=== PATIENT | female | born 1990 | race Two or more races ===

== ENCOUNTER 2022-12-28 13:49 | Emergency (ER) | payer OTHER ==
[2022-12-28 14:12] VITALS: BP 128/82; PULSE 91; RESP 20; TEMP 97.7; BMI 26.4
[2022-12-28] MEDS ORDERED: AMOX TR/POT CLAV 875MG/125MG TABLETS (FP) PO ONE (17:07)
[2022-12-28] MEDS ORDERED: AMOX TR/POT CLAV 875MG/125MG TABLETS (FP) ONE (17:37)
[2022-12-28 20:56] LABS: BASO % 0.3 % (0-2.0); EOS % 1.6 % (0-4.5); HEMATOCRIT 36.2 % (32.4-45.2); HEMOGLOBIN 11.8 GM/dL (10.7-15.3); LYMPH % 30.8 % (8-40); MCH 28.5 pg (25.7-33.7); MCHC 32.6 g/dl (32.0-36.0); MEAN CELL VOLUME 87.2 fl (80-96); MEAN PLT VOLUME 7.6 fl (7.5-11.1); NEUT % 60.3 % (42.8-82.8); PLATELET COUNT 672 10^3/uL (134-434); RBC 4.15 M/mm3 (3.60-5.2); RDW 13.3 % (11.6-15.6); WHITE BLOOD COUNT 12.1 K/mm3 (4.0-10.0)
[2022-12-28 21:25] LABS: CALCIUM 9.5 mg/dL (8.5-10.1)
[2022-12-28 21:26] LABS: ALBUMIN 2.3 g/dl (3.4-5.0); BLOOD UREA NITROGEN 22.9 mg/dL (7-18)
[2022-12-28 21:29] LABS: CREATININE 0.8 mg/dL (0.55-1.3)
[2022-12-28 21:31] LABS: BILIRUBIN,TOTAL 0.2 mg/dL (0.2-1)
[2022-12-28] MEDS ORDERED: AMOX TR/POT CLAV 875MG/125MG TABLETS (FP) PO SCH (22:00)
== END 2022-12-28 22:21 | disposition home or self-care (01) ==
LOC: JER 13:49
DX: L03.032 Cellulitis of left toe (principal)
CPT/HCPCS: 36415; 73630-TC-LT; 80053; 85025; 99284-25

== ENCOUNTER 2023-01-18 05:27 | Day surgery (SDC) | payer OTHER ==
[2023-01-12 14:59] VITALS: BMI 26.4
[2023-01-18] MEDS ORDERED: LIDOCAINE HCL 1%, 10 MG/ML (20ML VIAL) NR ONE ×3 (14:51→16:12)
[2023-01-18] MEDS ORDERED: ceFAZolin SODIUM 1 GM VIAL IVPB ONE ×2 (14:51→15:59)
[2023-01-18] MEDS ORDERED: HEPARIN NA (PORCINE) 5,000 UNITS/ML 1ML VIAL SQ ONE (14:52)
[2023-01-18] MEDS ORDERED: HEPARIN NA (PORCINE) 5,000 UNITS/ML 1ML VIAL ONE ×2 (14:54→16:40)
[2023-01-18] MEDS ORDERED: LIDOCAINE HCL 1%, 10 MG/ML (10ML VIAL) MDV ONE (14:54)
[2023-01-18] MEDS ORDERED: oxyCODONE HCL 5 MG TABLET PO PRN (15:06)
[2023-01-18] MEDS ORDERED: ONDANSETRON 4 MG/2 ML VIAL IVPUSH PRN (15:06)
[2023-01-18] MEDS ORDERED: PROMETHAZINE HCL 25 MG/1 ML VIAL IVPB PRN (15:06)
[2023-01-18] MEDS ORDERED: LACTATED RINGERS SOLUTION 1,000 ML IV SCH (15:15)
[2023-01-18] MEDS ORDERED: MIDAZOLAM HCL 2 MG/2 ML SINGLE DOSE VIAL ONE (15:52)
[2023-01-18] MEDS ORDERED: PROPOFOL 20 ML ONE ×2 (15:52→16:35)
[2023-01-18] MEDS ORDERED: SODIUM CHLORIDE 0.9% P/F 10 ML VIAL IJ ONE (15:53)
[2023-01-18] MEDS ORDERED: ceFAZolin SODIUM 1 GM VIAL ONE (15:53)
[2023-01-18] MEDS ORDERED: LIDOCAINE HCL/PF 2% SDV 5ML VIAL ONE (15:53)
[2023-01-18] MEDS ORDERED: ETOMIDATE 20 MG/10 ML VIAL IVPUSH ONE (16:37)
[2023-01-18] MEDS ORDERED: DEXTROSE 50%-WATER 25 GM/50 ML DISP.SYRIN ONE (17:25)
[2023-01-18] MEDS ORDERED: DEXTROSE 50%-WATER 25 GM/50 ML DISP.SYRIN IVPUSH ONE (17:28)
[2023-01-18] MEDS ORDERED: D5-1/2NS+40 MEQ KCL - 40 MEQ/1,000 ML INFUS.BAG IV SCH (17:30)
[2023-01-18 17:52] VITALS: RESP 16
[2023-01-18 19:18] VITALS: TEMP 97.2
[2023-01-18] MEDS ORDERED: ACETAMINOPHEN 325 MG TABLET (FP) ONE (19:59)
[2023-01-18] MEDS ORDERED: ACETAMINOPHEN 325 MG TABLET (FP) PO ONE (20:00)
[2023-01-18] MEDS ORDERED: ACETAMINOPHEN 500 MG TABLET (FP) PO PRN (20:01)
[2023-01-18 20:52] VITALS: BP 130/85; PULSE 70
== END 2023-01-18 21:00 | disposition home or self-care (01) ==
LOC: JASU-SURG 05:27
PROVIDERS: ATTEND Surgery Vascular Surgery
PROC: 047U3Z1 Dilation of Left Peroneal Artery using Drug-Coated Balloon, Percutaneous Approach (ICD-10-PCS; 2023-01-18)
PROC: 047N3Z1 Dilation of Left Popliteal Artery using Drug-Coated Balloon, Percutaneous Approach (ICD-10-PCS; 2023-01-18)
PROC: 047L3Z1 Dilation of Left Femoral Artery using Drug-Coated Balloon, Percutaneous Approach (ICD-10-PCS; principal; 2023-01-18 16:30)
DX: I70.202 Unspecified atherosclerosis of native arteries of extremities, left leg (principal); I70.92 Chronic total occlusion of artery of the extremities; E11.621 Type 2 diabetes mellitus with foot ulcer; E11.52 Type 2 diabetes mellitus with diabetic peripheral angiopathy with gangrene; E11.65 Type 2 diabetes mellitus with hyperglycemia
CPT/HCPCS: 37225; 37228; C1885; C2623; 76000-TC-FY; 81025; 82962; 94760; C1760; C1769; J1644

== ENCOUNTER 2023-02-21 09:30 | Emergency (ER) | payer OTHER ==
[2023-02-21] MEDS ORDERED: DEXTROSE 50%-WATER 25 GM/50 ML DISP.SYRIN ONE (09:36)
[2023-02-21] MEDS ORDERED: DEXTROSE 50%-WATER - 25 GM/50 ML VIAL IVPUSH ONE (09:48)
[2023-02-21 09:56] VITALS: BMI 25.7
[2023-02-21 10:55] VITALS: BP 149/97; PULSE 107; RESP 17; TEMP 98.1
[2023-02-21 11:57] LABS: POTASSIUM 4.3 mmol/L (3.5-5.1)
[2023-02-21 11:58] LABS: ALBUMIN 2.4 g/dl (3.4-5.0); BLOOD UREA NITROGEN 24.8 mg/dL (7-18); CALCIUM 8.9 mg/dL (8.5-10.1)
[2023-02-21 12:03] LABS: BILIRUBIN,TOTAL 0.2 mg/dL (0.2-1); TOT PROT 6.1 g/dl (6.4-8.2)
== END 2023-02-21 11:20 | disposition home or self-care (01) ==
LOC: JER 09:30
PROC: 3E033GC Introduction of Other Therapeutic Substance into Peripheral Vein, Percutaneous Approach (ICD-10-PCS; principal; 2023-02-21)
DX: E11.621 Type 2 diabetes mellitus with foot ulcer (principal); L97.529 Non-pressure chronic ulcer of other part of left foot with unspecified severity; E11.51 Type 2 diabetes mellitus with diabetic peripheral angiopathy without gangrene; E11.649 Type 2 diabetes mellitus with hypoglycemia without coma
CPT/HCPCS: 36415; 80053; 82962; 93005; 93010; 99284-25

== ENCOUNTER 2023-04-19 14:53 | Inpatient (IN) | payer OTHER ==
[2023-04-19] MEDS ORDERED: ACETAMINOPHEN 1000 MG/100 ML BAG IVPB ONE (15:59)
[2023-04-19] MEDS ORDERED: ACETAMINOPHEN INJECTION 100 ML IVPB ONE (16:28)
[2023-04-19 16:31] LABS: BASO % 0.1 % (0-2.0); EOS % 0.6 % (0-4.5); HEMATOCRIT 41.9 % (32.4-45.2); HEMOGLOBIN 13.9 GM/dL (10.7-15.3); LYMPH % 12.5 % (8-40); MCHC 33.1 g/dl (32.0-36.0); MEAN CELL VOLUME 87.5 fl (80-96); MEAN PLT VOLUME 8.2 fl (7.5-11.1); MONO % 7.7 % (3.8-10.2); NEUT % 79.1 % (42.8-82.8); PLATELET COUNT 446 10^3/uL (134-434); RBC 4.78 M/mm3 (3.60-5.2); RDW 16.4 % (11.6-15.6); WHITE BLOOD COUNT 22.2 K/mm3 (4.0-10.0)
[2023-04-19 16:47] LABS: INR 1.14 (0.83-1.09); PROTHROMBIN TIME (PATIENT) 13.2 SEC (9.7-13.0)
[2023-04-19 16:49] LABS: POTASSIUM 4.9 mmol/L (3.5-5.1)
[2023-04-19 16:50] LABS: ACTIVATED PTT 37.6 SECONDS (25.2-36.5)
[2023-04-19 16:52] LABS: ALBUMIN 2.4 g/dl (3.4-5.0); BLOOD UREA NITROGEN 34.3 mg/dL (7-18); CALCIUM 9.2 mg/dL (8.5-10.1)
[2023-04-19 16:55] LABS: CREATININE 1.4 mg/dL (0.55-1.3)
[2023-04-19 16:57] LABS: BILIRUBIN,TOTAL 0.4 mg/dL (0.2-1); TOT PROT 6.5 g/dl (6.4-8.2)
[2023-04-19 17:21] LABS: ERYTHROCYTE SEDIMENTATION RATE 82 mm/hr (0-20)
[2023-04-19 17:29] LABS: ANISOCYTOSIS 2+; MACROCYTOSIS 0
[2023-04-19] MEDS ORDERED: VANCOMYCIN HCL 1,500 MG in DEXTROSE 5%-WATER - 500 ML IVPB ONE (18:15)
[2023-04-19] MEDS ORDERED: PIPERACILLIN/TAZOB 3.375 GM 3.375 GM in DEXTROSE 5%-WATER - 50 ML IVPB ONE (18:16)
[2023-04-19] MEDS ORDERED: SODIUM CHLORIDE 1,000 ML IV STA (18:18)
[2023-04-19] MEDS ORDERED: PIPERACILLIN/TAZOB 3.375 GM 3.375 GM/50 ML BAG IVPB ONE (18:37)
[2023-04-19] MEDS ORDERED: VANCOMYCIN/WATER FOR INJ (PEG) 1,000 MG/200 ML BAG IVPB ONE (18:56)
[2023-04-19] MEDS ORDERED: VANCOMYCIN/WATER 1250 MG 1,250 MG/250 ML BAG IVPB ONE (19:53)
[2023-04-19] MEDS ORDERED: VANCOMYCIN/WATER 1250 MG 1,250 MG/250 ML BAG IVPB SCH (21:30)
[2023-04-19 21:55] LABS: EPI CELLS 35 /uL (0-25.1); HYALINE CASTS 1 /uL (0-3.1); PH,URINE 5.5 (5.0-8.0); URINE APPEARANCE CLEAR; URINE BACTERIA 240 /uL (0-1359); URINE BILIRUBIN NEGATIVE (NEGATIVE); URINE COLOR YELLOW; URINE GLUCOSE (UA) 3+ (NEGATIVE); URINE KETONE NEGATIVE (NEGATIVE); URINE LEUK ESTERASE NEGATIVE (NEGATIVE); URINE NITRITE NEGATIVE (NEGATIVE); URINE PROTEIN 3+ (NEGATIVE); URINE UROBILINOGEN 0.2 mg/dL (0.2-1.0); URINE WBC 20 /uL (0-25.8)
[2023-04-19 22:00] LABS: URINE RBC 39.7 /uL (0-23.9)
[2023-04-19] MEDS ORDERED: ACETAMINOPHEN 1000 MG/100 ML BAG IVPB PRN (23:44)
[2023-04-19] MEDS ORDERED: ACETAMINOPHEN 325 MG TABLET (FP) PO PRN (23:47)
[2023-04-19] MEDS ORDERED: INSULIN (NOVOLOG) ASPART 100 UNITS/ML 10ML VIAL ONE (23:49)
[2023-04-19] MEDS: INSULIN SLIDING SCALE (NOVOLOG) 1 VIAL SQ SCH (23:54)
[2023-04-19] MEDS: HEPARIN NA (PORCINE) 5,000 UNITS/ML 1ML VIAL SQ SCH (23:55)
[2023-04-19] MEDS: INSULIN (LEVEMIR) 100 UNITS/ML UNITS SQ SCH (23:55)
[2023-04-20] MEDS: PIPERACILLIN/TAZOB 3.375 GM 3.375 GM in DEXTROSE 5%-WATER - 50 ML IVPB SCH ×4 (04:44→21:13)
[2023-04-20] MEDS: HEPARIN NA (PORCINE) 5,000 UNITS/ML 1ML VIAL SQ SCH ×3 (05:57→21:13)
[2023-04-20] MEDS: INSULIN SLIDING SCALE (NOVOLOG) 1 VIAL SQ SCH ×4 (06:04→21:25)
[2023-04-20 08:34] LABS: HEMATOCRIT 35.2 % (32.4-45.2); HEMOGLOBIN 11.8 GM/dL (10.7-15.3); MCHC 33.4 g/dl (32.0-36.0); MEAN CELL VOLUME 86.7 fl (80-96); MEAN PLT VOLUME 8.3 fl (7.5-11.1); PLATELET COUNT 382 10^3/uL (134-434); RBC 4.06 M/mm3 (3.60-5.2); RDW 15.9 % (11.6-15.6); WHITE BLOOD COUNT 15.9 K/mm3 (4.0-10.0)
[2023-04-20 08:52] LABS: POTASSIUM 4.3 mmol/L (3.5-5.1)
[2023-04-20 08:55] LABS: BLOOD UREA NITROGEN 27.8 mg/dL (7-18); CALCIUM 8.3 mg/dL (8.5-10.1)
[2023-04-20 08:58] LABS: CREATININE 1.1 mg/dL (0.55-1.3)
[2023-04-20 09:01] LABS: BILIRUBIN,TOTAL 0.5 mg/dL (0.2-1); TOT PROT 5.2 g/dl (6.4-8.2)
[2023-04-20 09:06] LABS: ALBUMIN 1.8 g/dl (3.4-5.0)
[2023-04-20] MEDS ORDERED: VANCOMYCIN/WATER 1250 MG 1,250 MG/250 ML BAG IVPB SCH (10:00)
[2023-04-20] MEDS: LOSARTAN POTASSIUM 50 MG TABLET PO SCH (10:41)
[2023-04-20] MEDS: ASPIRIN COATED 81 MG TABLET.EC PO SCH (10:41)
[2023-04-20] MEDS ORDERED: INSULIN (NOVOLOG) ASPART 100 UNITS/ML 10ML VIAL ONE (11:35)
[2023-04-20] MEDS: VANCOMYCIN/WATER FOR INJ (PEG) 1,000 MG/200 ML BAG IVPB SCH ×2 (11:40→22:04)
[2023-04-20] MEDS: oxyCODONE HCL 5 MG TABLET PO PRN (14:49)
[2023-04-20] MEDS: ACETAMINOPHEN 325 MG TABLET (FP) PO PRN (14:50)
[2023-04-20] MEDS: INSULIN (LEVEMIR) 100 UNITS/ML UNITS SQ SCH (21:25)
[2023-04-21] MEDS: PIPERACILLIN/TAZOB 3.375 GM 3.375 GM in DEXTROSE 5%-WATER - 50 ML IVPB SCH ×4 (02:44→21:20)
[2023-04-21] MEDS: oxyCODONE HCL 5 MG TABLET PO PRN ×2 (04:17→10:48)
[2023-04-21] MEDS: HEPARIN NA (PORCINE) 5,000 UNITS/ML 1ML VIAL SQ SCH ×3 (06:18→21:20)
[2023-04-21] MEDS: INSULIN SLIDING SCALE (NOVOLOG) 1 VIAL SQ SCH ×4 (06:25→21:21)
[2023-04-21 08:18] LABS: BASO % 0.5 % (0-2.0); EOS % 1.1 % (0-4.5); HEMATOCRIT 35.2 % (32.4-45.2); HEMOGLOBIN 11.7 GM/dL (10.7-15.3); LYMPH % 24.2 % (8-40); MCH 29.5 pg (25.7-33.7); MCHC 33.3 g/dl (32.0-36.0); MEAN CELL VOLUME 88.6 fl (80-96); MEAN PLT VOLUME 9.1 fl (7.5-11.1); MONO % 8.1 % (3.8-10.2); NEUT % 66.1 % (42.8-82.8); PLATELET COUNT 404 10^3/uL (134-434); RBC 3.97 M/mm3 (3.60-5.2); RDW 15.6 % (11.6-15.6); WHITE BLOOD COUNT 14.2 K/mm3 (4.0-10.0)
[2023-04-21 08:24] LABS: POTASSIUM 4.4 mmol/L (3.5-5.1)
[2023-04-21 08:27] LABS: ALBUMIN 1.8 g/dl (3.4-5.0); BLOOD UREA NITROGEN 27.3 mg/dL (7-18)
[2023-04-21 08:30] LABS: CREATININE 1.3 mg/dL (0.55-1.3)
[2023-04-21 08:32] LABS: BILIRUBIN,TOTAL 0.4 mg/dL (0.2-1); TOT PROT 5.5 g/dl (6.4-8.2)
[2023-04-21] MEDS: LOSARTAN POTASSIUM 50 MG TABLET PO SCH (10:40)
[2023-04-21] MEDS: VANCOMYCIN/WATER FOR INJ (PEG) 1,000 MG/200 ML BAG IVPB SCH ×2 (10:40→22:08)
[2023-04-21] MEDS: ASPIRIN COATED 81 MG TABLET.EC PO SCH (10:40)
[2023-04-21] MEDS: ACETAMINOPHEN 325 MG TABLET (FP) PO PRN (10:49)
[2023-04-21] MEDS ORDERED: oxyCODONE HCL 5 MG TABLET PO PRN (11:32)
[2023-04-21] MEDS ORDERED: ONDANSETRON 4 MG/2 ML VIAL IVPUSH PRN (19:10)
[2023-04-21] MEDS: INSULIN (LEVEMIR) 100 UNITS/ML UNITS SQ SCH (21:22)
[2023-04-22] MEDS: PIPERACILLIN/TAZOB 3.375 GM 3.375 GM in DEXTROSE 5%-WATER - 50 ML IVPB SCH ×4 (02:56→21:15)
[2023-04-22] MEDS: HEPARIN NA (PORCINE) 5,000 UNITS/ML 1ML VIAL SQ SCH ×3 (05:26→21:17)
[2023-04-22] MEDS: INSULIN (LEVEMIR) 100 UNITS/ML UNITS SQ SCH ×2 (06:08→21:29)
[2023-04-22] MEDS: INSULIN SLIDING SCALE (NOVOLOG) 1 VIAL SQ SCH ×4 (06:09→21:29)
[2023-04-22] MEDS ORDERED: INSULIN (LEVEMIR) 100 UNITS/ML UNITS SQ SCH (07:00)
[2023-04-22 07:50] LABS: BASO % 0.4 % (0-2.0); EOS % 1.4 % (0-4.5); HEMATOCRIT 35.1 % (32.4-45.2); HEMOGLOBIN 11.6 GM/dL (10.7-15.3); LYMPH % 26.4 % (8-40); MCH 29.3 pg (25.7-33.7); MCHC 33.1 g/dl (32.0-36.0); MEAN CELL VOLUME 88.4 fl (80-96); MEAN PLT VOLUME 8.9 fl (7.5-11.1); NEUT % 62.8 % (42.8-82.8); PLATELET COUNT 391 10^3/uL (134-434); RBC 3.97 M/mm3 (3.60-5.2); RDW 15.2 % (11.6-15.6); WHITE BLOOD COUNT 10.9 K/mm3 (4.0-10.0)
[2023-04-22 09:44] LABS: BLOOD UREA NITROGEN 19.7 mg/dL (7-18); CALCIUM 8.5 mg/dL (8.5-10.1); CREATININE 1.1 mg/dL (0.55-1.3); POTASSIUM 4.5 mmol/L (3.5-5.1)
[2023-04-22] MEDS: LOSARTAN POTASSIUM 50 MG TABLET PO SCH (10:05)
[2023-04-22] MEDS: ASPIRIN COATED 81 MG TABLET.EC PO SCH (10:05)
[2023-04-22] MEDS ORDERED: TAPENTADOL HYDROCHLORIDE 50 MG TABLET PO PRN ×2 (10:25→10:31)
[2023-04-22] MEDS ORDERED: ACETAMINOPHEN 1000 MG/100 ML BAG IVPB ONE (10:30)
[2023-04-22] MEDS: VANCOMYCIN/WATER FOR INJ (PEG) 1,000 MG/200 ML BAG IVPB SCH ×2 (11:22→22:08)
[2023-04-22] MEDS ORDERED: ATORVASTATIN CA 20 MG TABLET (FP) PO SCH (22:00)
[2023-04-23] MEDS: PIPERACILLIN/TAZOB 3.375 GM 3.375 GM in DEXTROSE 5%-WATER - 50 ML IVPB SCH ×2 (03:17→09:29)
[2023-04-23] MEDS: HEPARIN NA (PORCINE) 5,000 UNITS/ML 1ML VIAL SQ SCH ×3 (06:11→21:48)
[2023-04-23] MEDS: INSULIN (LEVEMIR) 100 UNITS/ML UNITS SQ SCH (06:33)
[2023-04-23] MEDS: INSULIN SLIDING SCALE (NOVOLOG) 1 VIAL SQ SCH ×4 (06:35→21:58)
[2023-04-23 08:22] LABS: BASO % 0.8 % (0-2.0); EOS % 1.6 % (0-4.5); HEMATOCRIT 35.3 % (32.4-45.2); HEMOGLOBIN 11.7 GM/dL (10.7-15.3); LYMPH % 29.4 % (8-40); MCHC 33.3 g/dl (32.0-36.0); MEAN CELL VOLUME 87.1 fl (80-96); MEAN PLT VOLUME 8.4 fl (7.5-11.1); MONO % 10.2 % (3.8-10.2); PLATELET COUNT 415 10^3/uL (134-434); RBC 4.05 M/mm3 (3.60-5.2); RDW 15.3 % (11.6-15.6); WHITE BLOOD COUNT 11.6 K/mm3 (4.0-10.0)
[2023-04-23 08:37] LABS: POTASSIUM 4.8 mmol/L (3.5-5.1)
[2023-04-23 08:38] LABS: CALCIUM 9.3 mg/dL (8.5-10.1)
[2023-04-23 08:39] LABS: BLOOD UREA NITROGEN 21.1 mg/dL (7-18)
[2023-04-23 08:42] LABS: CREATININE 1.1 mg/dL (0.55-1.3)
[2023-04-23] MEDS: LOSARTAN POTASSIUM 50 MG TABLET PO SCH (10:15)
[2023-04-23] MEDS: ASPIRIN COATED 81 MG TABLET.EC PO SCH (10:15)
[2023-04-23] MEDS: VANCOMYCIN/WATER FOR INJ (PEG) 1,000 MG/200 ML BAG IVPB SCH (10:16)
[2023-04-23] MEDS ORDERED: CEFTRIAXONE 2 GM in DEXTROSE 5%-WATER 100 ML IVPB SCH ×2 (11:30→16:00)
[2023-04-23] MEDS ORDERED: LIDOCAINE HCL 1%, 10 MG/ML (10ML VIAL) MDV ONE (12:21)
[2023-04-23] MEDS ORDERED: HEPARIN NA (PORCINE) 5,000 UNITS/ML 1ML VIAL ONE (12:21)
[2023-04-23] MEDS ORDERED: MIDAZOLAM HCL 2 MG/2 ML SINGLE DOSE VIAL ONE (13:24)
[2023-04-23] MEDS ORDERED: PROPOFOL 40 ML ONE (13:35)
[2023-04-23] MEDS ORDERED: ceFAZolin SODIUM 1 GM VIAL IVPB ONE (13:37)
[2023-04-23] MEDS ORDERED: PROPOFOL 20 ML ONE (13:48)
[2023-04-23] MEDS ORDERED: PROTAMINE SULFATE 50 MG/5 ML VIAL ONE (14:11)
[2023-04-23] MEDS ORDERED: ONDANSETRON 4 MG/2 ML VIAL IVPUSH PRN ×2 (14:30→14:35)
[2023-04-23] MEDS ORDERED: ACETAMINOPHEN 325 MG TABLET (FP) PO PRN (14:35)
[2023-04-23] MEDS ORDERED: CLOPIDOGREL BISULFATE 75 MG TABLET (FP) ONE (14:58)
[2023-04-23] MEDS ORDERED: CLOPIDOGREL BISULFATE 75 MG TABLET (FP) PO ONE (15:27)
[2023-04-23] MEDS: CLOPIDOGREL BISULFATE 75 MG TABLET (FP) PO SCH (15:31)
[2023-04-23] MEDS: CEFTRIAXONE 2 GM in DEXTROSE 5%-WATER 100 ML IVPB SCH (15:38)
[2023-04-23] MEDS: LACTATED RINGERS SOLUTION 1,000 ML IV SCH (15:38)
[2023-04-23] MEDS: ATORVASTATIN CA 20 MG TABLET (FP) PO SCH (21:47)
[2023-04-23] MEDS ORDERED: INSULIN (NOVOLOG) ASPART 100 UNITS/ML 10ML VIAL ONE (21:57)
[2023-04-23] MEDS ORDERED: INSULIN (LEVEMIR) 100 UNITS/ML UNITS SQ SCH (22:00)
[2023-04-24] MEDS: TAPENTADOL HYDROCHLORIDE 50 MG TABLET PO PRN ×2 (01:05→21:56)
[2023-04-24] MEDS: LACTATED RINGERS SOLUTION 1,000 ML IV SCH (04:51)
[2023-04-24] MEDS ORDERED: INSULIN (LEVEMIR) 100 UNITS/ML UNITS SQ ONE ×2 (05:55→07:54)
[2023-04-24] MEDS: HEPARIN NA (PORCINE) 5,000 UNITS/ML 1ML VIAL SQ SCH ×3 (06:05→21:57)
[2023-04-24] MEDS: INSULIN SLIDING SCALE (NOVOLOG) 1 VIAL SQ SCH ×4 (06:05→21:56)
[2023-04-24] MEDS: INSULIN (LEVEMIR) 100 UNITS/ML UNITS SQ SCH (06:06)
[2023-04-24] MEDS ORDERED: INSULIN (NOVOLOG) ASPART 100 UNITS/ML 10ML VIAL ONE ×4 (07:53→20:59)
[2023-04-24 08:36] LABS: BASO % 0.3 % (0-2.0); EOS % 0.9 % (0-4.5); HEMATOCRIT 35.2 % (32.4-45.2); HEMOGLOBIN 11.4 GM/dL (10.7-15.3); LYMPH % 32.6 % (8-40); MCH 28.4 pg (25.7-33.7); MCHC 32.3 g/dl (32.0-36.0); MEAN PLT VOLUME 9.1 fl (7.5-11.1); MONO % 8.6 % (3.8-10.2); NEUT % 57.6 % (42.8-82.8); PLATELET COUNT 434 10^3/uL (134-434); WHITE BLOOD COUNT 13.4 K/mm3 (4.0-10.0)
[2023-04-24] MEDS: LOSARTAN POTASSIUM 50 MG TABLET PO SCH (09:58)
[2023-04-24] MEDS: CLOPIDOGREL BISULFATE 75 MG TABLET (FP) PO SCH (09:58)
[2023-04-24] MEDS: ASPIRIN COATED 81 MG TABLET.EC PO SCH (09:58)
[2023-04-24] MEDS: CEFTRIAXONE 2 GM in DEXTROSE 5%-WATER 100 ML IVPB SCH (09:59)
[2023-04-24] MEDS: ATORVASTATIN CA 20 MG TABLET (FP) PO SCH (21:57)
[2023-04-25] MEDS: HEPARIN NA (PORCINE) 5,000 UNITS/ML 1ML VIAL SQ SCH ×3 (06:08→21:53)
[2023-04-25] MEDS: INSULIN (LEVEMIR) 100 UNITS/ML UNITS SQ SCH (06:09)
[2023-04-25] MEDS: INSULIN SLIDING SCALE (NOVOLOG) 1 VIAL SQ SCH ×4 (06:09→22:05)
[2023-04-25] MEDS ORDERED: INSULIN (LEVEMIR) 100 UNITS/ML UNITS SQ ONE (06:56)
[2023-04-25] MEDS ORDERED: INSULIN (NOVOLOG) ASPART 100 UNITS/ML 10ML VIAL ONE ×2 (06:57→17:14)
[2023-04-25] MEDS: CLOPIDOGREL BISULFATE 75 MG TABLET (FP) PO SCH (10:14)
[2023-04-25] MEDS: LOSARTAN POTASSIUM 50 MG TABLET PO SCH (10:15)
[2023-04-25] MEDS: CEFTRIAXONE 2 GM in DEXTROSE 5%-WATER 100 ML IVPB SCH (10:15)
[2023-04-25] MEDS: ASPIRIN COATED 81 MG TABLET.EC PO SCH (10:15)
[2023-04-25 11:07] LABS: INR 1.05 (0.83-1.09); PROTHROMBIN TIME (PATIENT) 12.2 SEC (9.7-13.0)
[2023-04-25 21:08] LABS: ANTIGLOMERULAR BASEMENT MEN.AB <0.2 units (0.0-0.9)
[2023-04-25] MEDS: ATORVASTATIN CA 20 MG TABLET (FP) PO SCH (21:56)
[2023-04-25] MEDS ORDERED: DOCUSATE SODIUM 100 MG CAPSULE (FP) PO SCH (23:52)
[2023-04-25] MEDS ORDERED: POLYETHYLENE GLYCOL (HEALTHYLAX) 3350 17 GM PACKET PO SCH (23:53)
[2023-04-25] MEDS ORDERED: SENNOSIDES 8.6MG TABLET (FP) PO SCH (23:53)
[2023-04-26] MEDS ORDERED: BISACODYL 5 MG TABLET.DR (FP) PO ONE (00:03)
[2023-04-26] MEDS ORDERED: ACETAMINOPHEN 1000 MG/100 ML BAG IVPB ONE (05:43)
[2023-04-26] MEDS: HEPARIN NA (PORCINE) 5,000 UNITS/ML 1ML VIAL SQ SCH ×3 (06:41→22:35)
[2023-04-26] MEDS: INSULIN (LEVEMIR) 100 UNITS/ML UNITS SQ SCH ×2 (06:53→07:04)
[2023-04-26] MEDS: INSULIN SLIDING SCALE (NOVOLOG) 1 VIAL SQ SCH ×4 (06:54→22:40)
[2023-04-26] MEDS ORDERED: INSULIN (NOVOLOG) ASPART 100 UNITS/ML 10ML VIAL ONE ×3 (07:54→21:46)
[2023-04-26] MEDS ORDERED: ACETAMINOPHEN 1000 MG/100 ML BAG IVPB PRN (09:27)
[2023-04-26 09:33] LABS: HEMOGLOBIN 12.4 GM/dL (10.7-15.3); MCH 28.9 pg (25.7-33.7); MCHC 32.6 g/dl (32.0-36.0); MEAN CELL VOLUME 88.7 fl (80-96); MEAN PLT VOLUME 8.8 fl (7.5-11.1); PLATELET COUNT 510 10^3/uL (134-434); RBC 4.28 M/mm3 (3.60-5.2); RDW 15.2 % (11.6-15.6); WHITE BLOOD COUNT 12.6 K/mm3 (4.0-10.0)
[2023-04-26 09:36] LABS: INR 1.07 (0.83-1.09); PROTHROMBIN TIME (PATIENT) 12.4 SEC (9.7-13.0)
[2023-04-26 09:52] LABS: CALCIUM 9.6 mg/dL (8.5-10.1)
[2023-04-26 09:53] LABS: ALBUMIN 2.1 g/dl (3.4-5.0); BLOOD UREA NITROGEN 25.6 mg/dL (7-18); MAGNESIUM 2.1 mg/dL (1.8-2.4); POTASSIUM 4.7 mmol/L (3.5-5.1)
[2023-04-26 09:56] LABS: CREATININE 0.8 mg/dL (0.55-1.3)
[2023-04-26 09:57] LABS: BILIRUBIN,TOTAL 0.3 mg/dL (0.2-1)
[2023-04-26] MEDS ORDERED: POLYETHYLENE GLYCOL (HEALTHYLAX) 3350 17 GM PACKET PO SCH (10:00)
[2023-04-26] MEDS ORDERED: DOCUSATE SODIUM 100 MG CAPSULE (FP) PO SCH (10:00)
[2023-04-26] MEDS: LOSARTAN POTASSIUM 50 MG TABLET PO SCH (10:00)
[2023-04-26] MEDS: CEFTRIAXONE 2 GM in DEXTROSE 5%-WATER 100 ML IVPB SCH (12:55)
[2023-04-26] MEDS ORDERED: LIDOCAINE HCL 1%, 10 MG/ML (10ML VIAL) MDV ONE (13:03)
[2023-04-26] MEDS ORDERED: BUPIVACAINE HCL/PF 0.5% (5MG/ML) 10 ML VIAL ONE (13:04)
[2023-04-26] MEDS ORDERED: DEXAMETHASONE SOD PHOSPHATE 4 MG/1 ML VIAL ONE ×2 (13:04→14:26)
[2023-04-26] MEDS ORDERED: GENTAMICIN SO4 80 MG/2 ML VIAL ONE (13:04)
[2023-04-26] MEDS ORDERED: BENZOIN/ALOE VERA/STORAX/TOLU 58 ML BOTTLE ONE (13:07)
[2023-04-26] MEDS ORDERED: PROPOFOL 60 ML ONE (13:27)
[2023-04-26] MEDS ORDERED: LIDOCAINE HCL/PF 2% SDV 5ML VIAL ONE (13:27)
[2023-04-26] MEDS ORDERED: MIDAZOLAM HCL 2 MG/2 ML SINGLE DOSE VIAL ONE (13:28)
[2023-04-26] MEDS ORDERED: LIDOCAINE HCL 1%, 10 MG/ML (20ML VIAL) INF ONE (14:25)
[2023-04-26] MEDS ORDERED: BUPIVACAINE HCL/PF 0.5% (5MG/ML) 10 ML VIAL IJ ONE (14:25)
[2023-04-26 14:31] VITALS: BMI 26.5
[2023-04-26] MEDS ORDERED: PROMETHAZINE HCL 25 MG/1 ML VIAL IVPB PRN ×2 (15:01→15:42)
[2023-04-26] MEDS ORDERED: ONDANSETRON 4 MG/2 ML VIAL IVPUSH PRN ×3 (15:01→15:42)
[2023-04-26] MEDS ORDERED: LACTATED RINGERS SOLUTION 1,000 ML IV SCH (15:15)
[2023-04-26] MEDS ORDERED: ACETAMINOPHEN 325 MG TABLET (FP) PO PRN (15:42)
[2023-04-26] MEDS: LACTATED RINGERS SOLUTION 1,000 ML IV SCH (16:13)
[2023-04-26] MEDS: CLOPIDOGREL BISULFATE 75 MG TABLET (FP) PO SCH (16:44)
[2023-04-26] MEDS: ASPIRIN COATED 81 MG TABLET.EC PO SCH (16:44)
[2023-04-26 18:09] LABS: ATYPICAL pANCA <1:20 titer (Neg:<1:20); C-ANCA <1:20 titer (Neg:<1:20)
[2023-04-26] MEDS ORDERED: SENNOSIDES 8.6MG TABLET (FP) PO SCH (22:00)
[2023-04-26] MEDS: SENNOSIDES 8.6MG TABLET (FP) PO SCH (22:35)
[2023-04-26] MEDS: ATORVASTATIN CA 20 MG TABLET (FP) PO SCH (22:35)
[2023-04-27] MEDS: INSULIN (LEVEMIR) 100 UNITS/ML UNITS SQ SCH (06:19)
[2023-04-27] MEDS: HEPARIN NA (PORCINE) 5,000 UNITS/ML 1ML VIAL SQ SCH ×3 (06:19→22:07)
[2023-04-27] MEDS: INSULIN SLIDING SCALE (NOVOLOG) 1 VIAL SQ SCH ×4 (06:19→22:09)
[2023-04-27] MEDS: LACTATED RINGERS SOLUTION 1,000 ML IV SCH ×3 (06:20→20:31)
[2023-04-27] MEDS: CEFTRIAXONE 2 GM in DEXTROSE 5%-WATER 100 ML IVPB SCH (09:33)
[2023-04-27] MEDS: CLOPIDOGREL BISULFATE 75 MG TABLET (FP) PO SCH (09:36)
[2023-04-27] MEDS: POLYETHYLENE GLYCOL (HEALTHYLAX) 3350 17 GM PACKET PO SCH (09:36)
[2023-04-27] MEDS: ASPIRIN COATED 81 MG TABLET.EC PO SCH (09:36)
[2023-04-27] MEDS: LOSARTAN POTASSIUM 50 MG TABLET PO SCH (09:36)
[2023-04-27] MEDS: DOCUSATE SODIUM 100 MG CAPSULE (FP) PO SCH (09:36)
[2023-04-27] MEDS ORDERED: INSULIN (NOVOLOG) ASPART 100 UNITS/ML 10ML VIAL ONE ×2 (11:56→16:50)
[2023-04-27] MEDS: ACETAMINOPHEN 1000 MG/100 ML BAG IVPB PRN (20:30)
[2023-04-27] MEDS: SENNOSIDES 8.6MG TABLET (FP) PO SCH (22:08)
[2023-04-27] MEDS: ATORVASTATIN CA 20 MG TABLET (FP) PO SCH (22:08)
[2023-04-28] MEDS: HEPARIN NA (PORCINE) 5,000 UNITS/ML 1ML VIAL SQ SCH ×3 (06:12→22:44)
[2023-04-28] MEDS: INSULIN (LEVEMIR) 100 UNITS/ML UNITS SQ SCH (06:12)
[2023-04-28] MEDS: INSULIN SLIDING SCALE (NOVOLOG) 1 VIAL SQ SCH ×4 (06:13→22:47)
[2023-04-28 07:30] LABS: BASO % 0.3 % (0-2.0); EOS % 1.1 % (0-4.5); HEMATOCRIT 35.5 % (32.4-45.2); HEMOGLOBIN 11.7 GM/dL (10.7-15.3); LYMPH % 36.5 % (8-40); MEAN CELL VOLUME 87.9 fl (80-96); MEAN PLT VOLUME 8.6 fl (7.5-11.1); MONO % 9.2 % (3.8-10.2); NEUT % 52.9 % (42.8-82.8); PLATELET COUNT 552 10^3/uL (134-434); RBC 4.04 M/mm3 (3.60-5.2); RDW 15.1 % (11.6-15.6); WHITE BLOOD COUNT 12.4 K/mm3 (4.0-10.0)
[2023-04-28 07:51] LABS: POTASSIUM 5.2 mmol/L (3.5-5.1)
[2023-04-28 08:00] LABS: CALCIUM 9.5 mg/dL (8.5-10.1)
[2023-04-28 08:01] LABS: ALBUMIN 1.8 g/dl (3.4-5.0); BLOOD UREA NITROGEN 22.6 mg/dL (7-18); MAGNESIUM 2.3 mg/dL (1.8-2.4)
[2023-04-28 08:03] LABS: CREATININE 0.8 mg/dL (0.55-1.3)
[2023-04-28 08:05] LABS: BILIRUBIN,TOTAL 0.1 mg/dL (0.2-1); TOT PROT 5.6 g/dl (6.4-8.2)
[2023-04-28] MEDS: ASPIRIN COATED 81 MG TABLET.EC PO SCH (09:13)
[2023-04-28] MEDS: CEFTRIAXONE 2 GM in DEXTROSE 5%-WATER 100 ML IVPB SCH (09:13)
[2023-04-28] MEDS: DOCUSATE SODIUM 100 MG CAPSULE (FP) PO SCH (09:13)
[2023-04-28] MEDS: LOSARTAN POTASSIUM 50 MG TABLET PO SCH (09:13)
[2023-04-28] MEDS: CLOPIDOGREL BISULFATE 75 MG TABLET (FP) PO SCH (09:13)
[2023-04-28] MEDS: POLYETHYLENE GLYCOL (HEALTHYLAX) 3350 17 GM PACKET PO SCH (09:16)
[2023-04-28] MEDS: LACTATED RINGERS SOLUTION 1,000 ML IV SCH ×2 (10:57→17:01)
[2023-04-28] MEDS ORDERED: INSULIN (LEVEMIR) 100 UNITS/ML UNITS SQ ONE (18:51)
[2023-04-28] MEDS: SENNOSIDES 8.6MG TABLET (FP) PO SCH (22:44)
[2023-04-28] MEDS: ATORVASTATIN CA 20 MG TABLET (FP) PO SCH (22:44)
[2023-04-29] MEDS: LACTATED RINGERS SOLUTION 1,000 ML IV SCH ×2 (00:13→16:55)
[2023-04-29] MEDS: HEPARIN NA (PORCINE) 5,000 UNITS/ML 1ML VIAL SQ SCH ×3 (06:48→21:49)
[2023-04-29] MEDS: INSULIN SLIDING SCALE (NOVOLOG) 1 VIAL SQ SCH ×4 (06:48→21:54)
[2023-04-29] MEDS: INSULIN (LEVEMIR) 100 UNITS/ML UNITS SQ SCH (06:49)
[2023-04-29] MEDS ORDERED: INSULIN (LEVEMIR) 100 UNITS/ML UNITS SQ ONE (08:14)
[2023-04-29 08:39] LABS: BASO % 0.2 % (0-2.0); EOS % 1.1 % (0-4.5); HEMATOCRIT 36.1 % (32.4-45.2); HEMOGLOBIN 12.2 GM/dL (10.7-15.3); LYMPH % 28.6 % (8-40); MCH 29.2 pg (25.7-33.7); MCHC 33.7 g/dl (32.0-36.0); MEAN CELL VOLUME 86.7 fl (80-96); MEAN PLT VOLUME 7.9 fl (7.5-11.1); MONO % 7.2 % (3.8-10.2); NEUT % 62.9 % (42.8-82.8); PLATELET COUNT 557 10^3/uL (134-434); RBC 4.16 M/mm3 (3.60-5.2); RDW 14.8 % (11.6-15.6); WHITE BLOOD COUNT 13.6 K/mm3 (4.0-10.0)
[2023-04-29 08:55] LABS: POTASSIUM 5.1 mmol/L (3.5-5.1)
[2023-04-29 09:01] LABS: CALCIUM 9.3 mg/dL (8.5-10.1)
[2023-04-29 09:02] LABS: ALBUMIN 1.9 g/dl (3.4-5.0); BLOOD UREA NITROGEN 27.1 mg/dL (7-18); MAGNESIUM 2.1 mg/dL (1.8-2.4)
[2023-04-29 09:07] LABS: BILIRUBIN,TOTAL 0.1 mg/dL (0.2-1); TOT PROT 5.4 g/dl (6.4-8.2)
[2023-04-29] MEDS: CEFTRIAXONE 2 GM in DEXTROSE 5%-WATER 100 ML IVPB SCH (09:47)
[2023-04-29] MEDS: LOSARTAN POTASSIUM 50 MG TABLET PO SCH (09:48)
[2023-04-29] MEDS: CLOPIDOGREL BISULFATE 75 MG TABLET (FP) PO SCH (09:48)
[2023-04-29] MEDS: POLYETHYLENE GLYCOL (HEALTHYLAX) 3350 17 GM PACKET PO SCH (09:48)
[2023-04-29] MEDS: ASPIRIN COATED 81 MG TABLET.EC PO SCH (09:48)
[2023-04-29] MEDS: DOCUSATE SODIUM 100 MG CAPSULE (FP) PO SCH (09:49)
[2023-04-29] MEDS: ACETAMINOPHEN 1000 MG/100 ML BAG IVPB PRN (14:51)
[2023-04-29] MEDS ORDERED: INSULIN (NOVOLOG) ASPART 100 UNITS/ML 10ML VIAL ONE ×2 (17:21→21:36)
[2023-04-29] MEDS: SENNOSIDES 8.6MG TABLET (FP) PO SCH (21:50)
[2023-04-29] MEDS: ATORVASTATIN CA 20 MG TABLET (FP) PO SCH (21:50)
[2023-04-30] MEDS: HEPARIN NA (PORCINE) 5,000 UNITS/ML 1ML VIAL SQ SCH ×2 (06:10→13:01)
[2023-04-30] MEDS: INSULIN SLIDING SCALE (NOVOLOG) 1 VIAL SQ SCH ×2 (06:11→11:34)
[2023-04-30] MEDS: INSULIN (LEVEMIR) 100 UNITS/ML UNITS SQ SCH (06:11)
[2023-04-30] MEDS ORDERED: INSULIN (NOVOLOG) ASPART 100 UNITS/ML 10ML VIAL ONE ×2 (07:03→11:06)
[2023-04-30] MEDS ORDERED: INSULIN (LEVEMIR) 100 UNITS/ML UNITS SQ ONE (07:04)
[2023-04-30 09:23] LABS: HEMATOCRIT 38.6 % (32.4-45.2); HEMOGLOBIN 12.6 GM/dL (10.7-15.3); MCH 29.1 pg (25.7-33.7); MCHC 32.7 g/dl (32.0-36.0); MEAN CELL VOLUME 88.9 fl (80-96); MEAN PLT VOLUME 8.2 fl (7.5-11.1); PLATELET COUNT 597 10^3/uL (134-434); RBC 4.34 M/mm3 (3.60-5.2); RDW 15.2 % (11.6-15.6); WHITE BLOOD COUNT 14.7 K/mm3 (4.0-10.0)
[2023-04-30 09:43] LABS: POTASSIUM 5.2 mmol/L (3.5-5.1)
[2023-04-30 09:51] LABS: BLOOD UREA NITROGEN 25.4 mg/dL (7-18)
[2023-04-30 09:52] LABS: CALCIUM 9.3 mg/dL (8.5-10.1)
[2023-04-30 09:53] LABS: MAGNESIUM 2.1 mg/dL (1.8-2.4)
[2023-04-30 09:55] LABS: BILIRUBIN,TOTAL 0.1 mg/dL (0.2-1); TOT PROT 5.8 g/dl (6.4-8.2)
[2023-04-30 10:13] LABS: ANISOCYTOSIS 1+; MACROCYTOSIS 0
[2023-04-30] MEDS: CEFTRIAXONE 2 GM in DEXTROSE 5%-WATER 100 ML IVPB SCH (11:11)
[2023-04-30] MEDS: POLYETHYLENE GLYCOL (HEALTHYLAX) 3350 17 GM PACKET PO SCH (11:12)
[2023-04-30] MEDS: LOSARTAN POTASSIUM 50 MG TABLET PO SCH (11:12)
[2023-04-30] MEDS: CLOPIDOGREL BISULFATE 75 MG TABLET (FP) PO SCH (11:12)
[2023-04-30] MEDS: ASPIRIN COATED 81 MG TABLET.EC PO SCH (11:12)
[2023-04-30] MEDS: DOCUSATE SODIUM 100 MG CAPSULE (FP) PO SCH (11:13)
[2023-04-30 11:37] VITALS: RESP 16
[2023-04-30] MEDS ORDERED: hydrALAZINE HCL 10 MG TABLET PO SCH (11:45)
[2023-04-30] MEDS: hydrALAZINE HCL 10 MG TABLET PO SCH ×2 (12:55→13:02)
[2023-04-30] MEDS ORDERED: FLUCONAZOLE 150 MG TABLET PO ONE (13:25)
[2023-04-30 13:56] VITALS: BP 113/79; PULSE 82; TEMP 97.7
[2023-04-30] MEDS ORDERED: SODIUM ZIRCONIUM CYCLOSILICATE (LOKELMA) 5 GM PACKET PO SCH (14:15)
[2023-05-01] MEDS ORDERED: hydrALAZINE HCL 10 MG TABLET PO SCH (10:00)
== END 2023-04-30 14:55 | disposition home or self-care (01) | DRG 240 ==
LOC: JER 14:53 → JERBED 18:16 → J7W 23:06
PROVIDERS: ADMIT Internal Medicine; ATTEND Nurse Practitioner Family
PROC: 047Q3ZZ Dilation of Left Anterior Tibial Artery, Percutaneous Approach (ICD-10-PCS; 2023-04-23)
PROC: B41DZZZ Fluoroscopy of Aorta and Bilateral Lower Extremity Arteries (ICD-10-PCS; 2023-04-23)
PROC: 3E05317 Introduction of Other Thrombolytic into Peripheral Artery, Percutaneous Approach (ICD-10-PCS; 2023-04-23)
PROC: 0Y6N0ZD Detachment at Left Foot, Partial 4th Ray, Open Approach (ICD-10-PCS; principal; 2023-04-26 14:00)
DX: E11.52 Type 2 diabetes mellitus with diabetic peripheral angiopathy with gangrene (principal); I96 Gangrene, not elsewhere classified; L03.116 Cellulitis of left lower limb; N17.9 Acute kidney failure, unspecified; I10 Essential (primary) hypertension; I25.10 Atherosclerotic heart disease of native coronary artery without angina pectoris; E78.5 Hyperlipidemia, unspecified; E11.621 Type 2 diabetes mellitus with foot ulcer; L97.529 Non-pressure chronic ulcer of other part of left foot with unspecified severity; Z95.5 Presence of coronary angioplasty implant and graft; E11.40 Type 2 diabetes mellitus with diabetic neuropathy, unspecified; E11.65 Type 2 diabetes mellitus with hyperglycemia
CPT/HCPCS: 36415; 73630-TC-LT; 73718-TC-LT; 75635-TC; 76000-TC-FY; 76775-TC; 80048; 80053; 80061; 81003; 82550; 82962; 83036; 83516; 83520; 83605; 83735; 84100; 84703; 85025; 85027; 85610; 85651; 85730; 86038; 86140; 86225; 86256; 86850; 86900; 86901; 87040; 87070; 87186; 87205; 88305-TC; 88311-TC; 93005; 93010; 94760; 97116-GP; 97162-GP; 99285-25; C1769; G0480; J1644; Q9967

== ENCOUNTER 2023-05-24 03:59 | Day surgery (SDC) | payer OTHER ==
[2023-05-23 15:14] VITALS: BMI 26.4
[2023-05-24] MEDS ORDERED: ACETAMINOPHEN 325 MG TABLET (FP) ONE (12:08)
[2023-05-24] MEDS ORDERED: LIDOCAINE HCL 1%, 10 MG/ML (10ML VIAL) MDV ONE (14:00)
[2023-05-24] MEDS ORDERED: MIDAZOLAM HCL 2 MG/2 ML SINGLE DOSE VIAL ONE (14:26)
[2023-05-24] MEDS ORDERED: ceFAZolin SODIUM 1 GM VIAL IVPB ONE (14:45)
[2023-05-24] MEDS ORDERED: GENTAMICIN SO4 80 MG/2 ML VIAL ONE (15:00)
[2023-05-24] MEDS ORDERED: ceFAZolin SODIUM 1 GM VIAL ONE (15:09)
[2023-05-24] MEDS ORDERED: DEXAMETHASONE SOD PHOSPHATE 4 MG/1 ML VIAL ONE (15:09)
[2023-05-24] MEDS ORDERED: ONDANSETRON 4 MG/2 ML VIAL ONE ×2 (15:09→17:48)
[2023-05-24] MEDS ORDERED: ONDANSETRON 4 MG/2 ML VIAL IVPUSH PRN (15:46)
[2023-05-24] MEDS ORDERED: LACTATED RINGERS SOLUTION 1,000 ML IV SCH (16:00)
[2023-05-24 17:56] VITALS: RESP 16
[2023-05-24 19:58] VITALS: BP 155/100; PULSE 90; TEMP 97.3
== END 2023-05-24 19:45 | disposition home or self-care (01) ==
LOC: JASU-SURG 03:59
PROVIDERS: ATTEND Surgery Vascular Surgery
PROC: 0JBR0ZZ Excision of Left Foot Subcutaneous Tissue and Fascia, Open Approach (ICD-10-PCS; 2023-05-24)
PROC: 0QTP0ZZ Resection of Left Metatarsal, Open Approach (ICD-10-PCS; principal; 2023-05-24 12:00)
DX: E11.621 Type 2 diabetes mellitus with foot ulcer (principal); M86.9 Osteomyelitis, unspecified; L97.529 Non-pressure chronic ulcer of other part of left foot with unspecified severity
CPT/HCPCS: 81025; 82962; 87070; 87186; 87205; 88304-TC; 88311-TC; 94760; C1713

== ENCOUNTER 2023-06-07 12:49 | Inpatient (IN) | payer OTHER ==
[2023-06-07] MEDS ORDERED: ACETAMINOPHEN 1000 MG/100 ML BAG IVPB ONE (13:36)
[2023-06-07] MEDS ORDERED: VANCOMYCIN 1,000 MG in DEXTROSE 5%-WATER - 250 ML IVPB ONE (13:36)
[2023-06-07] MEDS ORDERED: CEFEPIME HCL 1 GM VIAL (RESTRICTED TO ID) IVPB ONE (13:37)
[2023-06-07 14:16] LABS: EOS % 0.8 % (0-4.5); HEMATOCRIT 38.2 % (32.4-45.2); HEMOGLOBIN 12.6 GM/dL (10.7-15.3); MCHC 32.9 g/dl (32.0-36.0); MEAN CELL VOLUME 91.1 fl (80-96); MONO % 6.5 % (3.8-10.2); NEUT % 69.7 % (42.8-82.8); PLATELET COUNT 536 10^3/uL (134-434); RDW 13.3 % (11.6-15.6); WHITE BLOOD COUNT 16.3 K/mm3 (4.0-10.0)
[2023-06-07] MEDS ORDERED: CEFEPIME 1 GM/100 ML BAG IVPB ONE (14:16)
[2023-06-07] MEDS ORDERED: ACETAMINOPHEN INJECTION 100 ML IVPB ONE (14:16)
[2023-06-07] MEDS ORDERED: VANCOMYCIN/WATER FOR INJ (PEG) 1,000 MG/200 ML BAG IVPB ONE (14:16)
[2023-06-07 14:34] LABS: POTASSIUM 4.8 mmol/L (3.5-5.1)
[2023-06-07 14:36] LABS: CALCIUM 9.6 mg/dL (8.5-10.1)
[2023-06-07 14:37] LABS: ALBUMIN 2.4 g/dl (3.4-5.0); BLOOD UREA NITROGEN 18.7 mg/dL (7-18)
[2023-06-07 14:40] LABS: CREATININE 0.9 mg/dL (0.55-1.3)
[2023-06-07 14:41] LABS: BILIRUBIN,TOTAL 0.3 mg/dL (0.2-1)
[2023-06-07] MEDS ORDERED: VANCOMYCIN 1 GRAM (PRE-DOCKED) 1,000 MG/250 ML BAG IVPB ONE (15:29)
[2023-06-07] MEDS: ACETAMINOPHEN WITH CODEINE 300MG/30MG TABLET PO PRN (20:07)
[2023-06-07] MEDS: ATORVASTATIN CA 20 MG TABLET (FP) PO SCH (21:17)
[2023-06-07] MEDS: INSULIN (LEVEMIR) 100 UNITS/ML UNITS SQ SCH (21:17)
[2023-06-07] MEDS: INSULIN SLIDING SCALE (NOVOLOG) 1 VIAL SQ SCH (21:18)
[2023-06-08] MEDS: ACETAMINOPHEN WITH CODEINE 300MG/30MG TABLET PO PRN ×3 (02:34→23:47)
[2023-06-08] MEDS ORDERED: CEFEPIME 2 GM in DEXTROSE 5%-WATER 100 ML IVPB SCH (03:00)
[2023-06-08] MEDS ORDERED: CEFEPIME HCL 2 GM VIAL (RESTRICTED TO ID) IVPB SCH (03:15)
[2023-06-08] MEDS ORDERED: ACETAMINOPHEN 1000 MG/100 ML BAG IVPB ONE (04:08)
[2023-06-08] MEDS: INSULIN SLIDING SCALE (NOVOLOG) 1 VIAL SQ SCH ×4 (06:52→21:54)
[2023-06-08] MEDS: LOSARTAN POTASSIUM 50 MG TABLET PO SCH (09:11)
[2023-06-08] MEDS: ASPIRIN COATED 81 MG TABLET.EC PO SCH ×2 (09:14→14:21)
[2023-06-08] MEDS: INSULIN (LEVEMIR) 100 UNITS/ML UNITS SQ SCH ×2 (09:14→21:52)
[2023-06-08] MEDS: CLOPIDOGREL BISULFATE 75 MG TABLET (FP) PO SCH ×2 (09:14→14:20)
[2023-06-08] MEDS ORDERED: ENOXAPARIN NA (PORCINE) 40 MG/0.4 ML DISP.SYRIN SQ SCH (10:00)
[2023-06-08 13:54] LABS: BASO % 0.5 % (0-2.0); EOS % 1.2 % (0-4.5); HEMATOCRIT 34.7 % (32.4-45.2); HEMOGLOBIN 11.5 GM/dL (10.7-15.3); LYMPH % 22.4 % (8-40); MCH 29.7 pg (25.7-33.7); MCHC 33.2 g/dl (32.0-36.0); MEAN CELL VOLUME 89.4 fl (80-96); MEAN PLT VOLUME 8.9 fl (7.5-11.1); MONO % 7.8 % (3.8-10.2); NEUT % 68.1 % (42.8-82.8); PLATELET COUNT 440 10^3/uL (134-434); RBC 3.88 M/mm3 (3.60-5.2); RDW 13.2 % (11.6-15.6); WHITE BLOOD COUNT 14.7 K/mm3 (4.0-10.0)
[2023-06-08 14:36] LABS: POTASSIUM 4.8 mmol/L (3.5-5.1)
[2023-06-08 14:38] LABS: BLOOD UREA NITROGEN 16.1 mg/dL (7-18); MAGNESIUM 2.1 mg/dL (1.8-2.4)
[2023-06-08 14:41] LABS: CREATININE 0.8 mg/dL (0.55-1.3); PHOSPHOROUS 4.7 mg/dL (2.5-4.9)
[2023-06-08 14:43] LABS: BILIRUBIN,TOTAL 0.2 mg/dL (0.2-1)
[2023-06-08] MEDS ORDERED: VANCOMYCIN 1,000 MG in DEXTROSE 5%-WATER - 250 ML IVPB SCH (15:15)
[2023-06-08] MEDS ORDERED: VANCOMYCIN/WATER FOR INJ (PEG) 1,000 MG/200 ML BAG IVPB SCH (15:30)
[2023-06-08] MEDS: PIPERACILLIN/TAZOB 3.375 GM 3.375 GM in DEXTROSE 5%-WATER - 50 ML IVPB SCH (18:29)
[2023-06-08] MEDS: ATORVASTATIN CA 20 MG TABLET (FP) PO SCH (21:49)
[2023-06-08] MEDS ORDERED: INSULIN (NOVOLOG) ASPART 100 UNITS/ML 10ML VIAL ONE (21:53)
[2023-06-09] MEDS: PIPERACILLIN/TAZOB 3.375 GM 3.375 GM in DEXTROSE 5%-WATER - 50 ML IVPB SCH ×3 (02:20→17:13)
[2023-06-09] MEDS: ACETAMINOPHEN WITH CODEINE 300MG/30MG TABLET PO PRN ×3 (05:18→22:09)
[2023-06-09] MEDS: INSULIN SLIDING SCALE (NOVOLOG) 1 VIAL SQ SCH ×4 (06:05→22:07)
[2023-06-09] MEDS: INSULIN (LEVEMIR) 100 UNITS/ML UNITS SQ SCH ×2 (09:16→22:07)
[2023-06-09] MEDS: ENOXAPARIN NA (PORCINE) 40 MG/0.4 ML DISP.SYRIN SQ SCH (09:17)
[2023-06-09] MEDS: CLOPIDOGREL BISULFATE 75 MG TABLET (FP) PO SCH (09:18)
[2023-06-09] MEDS: ASPIRIN COATED 81 MG TABLET.EC PO SCH (09:18)
[2023-06-09 09:53] LABS: BASO % 0.1 % (0-2.0); HEMATOCRIT 32.1 % (32.4-45.2); HEMOGLOBIN 10.9 GM/dL (10.7-15.3); LYMPH % 23.6 % (8-40); MCH 29.9 pg (25.7-33.7); MCHC 33.9 g/dl (32.0-36.0); MEAN PLT VOLUME 8.3 fl (7.5-11.1); MONO % 9.3 % (3.8-10.2); PLATELET COUNT 491 10^3/uL (134-434); RBC 3.65 M/mm3 (3.60-5.2); WHITE BLOOD COUNT 14.8 K/mm3 (4.0-10.0)
[2023-06-09 10:09] LABS: POTASSIUM 4.7 mmol/L (3.5-5.1)
[2023-06-09 10:12] LABS: ALBUMIN 1.8 g/dl (3.4-5.0); BLOOD UREA NITROGEN 19.4 mg/dL (7-18); MAGNESIUM 2.1 mg/dL (1.8-2.4)
[2023-06-09 10:14] LABS: CALCIUM 8.3 mg/dL (8.5-10.1); CHOLESTEROL 213 mg/dL (50-200); CREATININE 1.1 mg/dL (0.55-1.3); PHOSPHOROUS 4.5 mg/dL (2.5-4.9)
[2023-06-09 10:15] LABS: BILIRUBIN,TOTAL 0.2 mg/dL (0.2-1); TOT PROT 5.6 g/dl (6.4-8.2)
[2023-06-09 10:16] LABS: LDL CHOLESTEROL (ONLY SJRH) 133 mg/dL (5-100)
[2023-06-09 10:17] LABS: HDL CHOLESTEROL 50 mg/dL (40-60)
[2023-06-09] MEDS: LOSARTAN POTASSIUM 50 MG TABLET PO SCH (11:08)
[2023-06-09 15:49] VITALS: BMI 25.9
[2023-06-09] MEDS ORDERED: INSULIN (NOVOLOG) ASPART 100 UNITS/ML 10ML VIAL ONE (18:26)
[2023-06-09] MEDS: ATORVASTATIN CA 20 MG TABLET (FP) PO SCH (22:03)
[2023-06-10] MEDS: PIPERACILLIN/TAZOB 3.375 GM 3.375 GM in DEXTROSE 5%-WATER - 50 ML IVPB SCH ×3 (02:13→17:12)
[2023-06-10] MEDS: INSULIN SLIDING SCALE (NOVOLOG) 1 VIAL SQ SCH ×4 (06:19→22:29)
[2023-06-10] MEDS: INSULIN (LEVEMIR) 100 UNITS/ML UNITS SQ SCH ×2 (09:21→22:30)
[2023-06-10] MEDS: LOSARTAN POTASSIUM 50 MG TABLET PO SCH (09:22)
[2023-06-10] MEDS: CLOPIDOGREL BISULFATE 75 MG TABLET (FP) PO SCH (09:22)
[2023-06-10] MEDS: ASPIRIN COATED 81 MG TABLET.EC PO SCH (09:22)
[2023-06-10] MEDS: ENOXAPARIN NA (PORCINE) 40 MG/0.4 ML DISP.SYRIN SQ SCH (09:22)
[2023-06-10] MEDS: ACETAMINOPHEN WITH CODEINE 300MG/30MG TABLET PO PRN ×2 (15:09→22:26)
[2023-06-10] MEDS: ATORVASTATIN CA 80 MG TABLET (FP) PO SCH (22:26)
[2023-06-11] MEDS: PIPERACILLIN/TAZOB 3.375 GM 3.375 GM in DEXTROSE 5%-WATER - 50 ML IVPB SCH ×3 (02:34→17:02)
[2023-06-11] MEDS: ACETAMINOPHEN WITH CODEINE 300MG/30MG TABLET PO PRN ×3 (04:40→21:35)
[2023-06-11] MEDS: INSULIN SLIDING SCALE (NOVOLOG) 1 VIAL SQ SCH ×4 (06:40→21:39)
[2023-06-11] MEDS: LOSARTAN POTASSIUM 50 MG TABLET PO SCH (09:40)
[2023-06-11] MEDS: ASPIRIN COATED 81 MG TABLET.EC PO SCH (09:40)
[2023-06-11] MEDS: CLOPIDOGREL BISULFATE 75 MG TABLET (FP) PO SCH (09:40)
[2023-06-11] MEDS: INSULIN (LEVEMIR) 100 UNITS/ML UNITS SQ SCH ×2 (09:40→21:41)
[2023-06-11] MEDS: ENOXAPARIN NA (PORCINE) 40 MG/0.4 ML DISP.SYRIN SQ SCH (09:41)
[2023-06-11 11:11] LABS: BASO % 0.3 % (0-2.0); EOS % 1.3 % (0-4.5); HEMATOCRIT 34.1 % (32.4-45.2); HEMOGLOBIN 11.5 GM/dL (10.7-15.3); LYMPH % 29.7 % (8-40); MCH 29.8 pg (25.7-33.7); MCHC 33.7 g/dl (32.0-36.0); MEAN CELL VOLUME 88.2 fl (80-96); MONO % 6.9 % (3.8-10.2); NEUT % 61.8 % (42.8-82.8); PLATELET COUNT 546 10^3/uL (134-434); RBC 3.87 M/mm3 (3.60-5.2); WHITE BLOOD COUNT 12.7 K/mm3 (4.0-10.0)
[2023-06-11 11:37] LABS: POTASSIUM 4.8 mmol/L (3.5-5.1)
[2023-06-11 11:39] LABS: CALCIUM 8.9 mg/dL (8.5-10.1)
[2023-06-11 11:40] LABS: ALBUMIN 1.9 g/dl (3.4-5.0); MAGNESIUM 2.2 mg/dL (1.8-2.4)
[2023-06-11 11:43] LABS: PHOSPHOROUS 4.1 mg/dL (2.5-4.9)
[2023-06-11 11:44] LABS: TOT PROT 5.9 g/dl (6.4-8.2)
[2023-06-11 11:45] LABS: BILIRUBIN,TOTAL 0.2 mg/dL (0.2-1)
[2023-06-11] MEDS: ATORVASTATIN CA 80 MG TABLET (FP) PO SCH (21:34)
[2023-06-12] MEDS: PIPERACILLIN/TAZOB 3.375 GM 3.375 GM in DEXTROSE 5%-WATER - 50 ML IVPB SCH ×3 (01:10→17:42)
[2023-06-12] MEDS: INSULIN SLIDING SCALE (NOVOLOG) 1 VIAL SQ SCH ×4 (06:52→21:39)
[2023-06-12] MEDS ORDERED: INSULIN (LEVEMIR) 100 UNITS/ML UNITS SQ ONE (09:03)
[2023-06-12] MEDS ORDERED: INSULIN (NOVOLOG) ASPART 100 UNITS/ML 10ML VIAL ONE (09:03)
[2023-06-12] MEDS: LOSARTAN POTASSIUM 50 MG TABLET PO SCH (09:11)
[2023-06-12] MEDS: CLOPIDOGREL BISULFATE 75 MG TABLET (FP) PO SCH (09:11)
[2023-06-12] MEDS: INSULIN (LEVEMIR) 100 UNITS/ML UNITS SQ SCH ×2 (09:11→21:38)
[2023-06-12] MEDS: ENOXAPARIN NA (PORCINE) 40 MG/0.4 ML DISP.SYRIN SQ SCH (09:11)
[2023-06-12] MEDS: ASPIRIN COATED 81 MG TABLET.EC PO SCH (09:11)
[2023-06-12 10:20] LABS: BASO % 0.4 % (0-2.0); EOS % 1.1 % (0-4.5); HEMATOCRIT 33.9 % (32.4-45.2); HEMOGLOBIN 11.5 GM/dL (10.7-15.3); LYMPH % 18.5 % (8-40); MCH 29.9 pg (25.7-33.7); MCHC 33.8 g/dl (32.0-36.0); MEAN CELL VOLUME 88.3 fl (80-96); MEAN PLT VOLUME 8.1 fl (7.5-11.1); MONO % 6.5 % (3.8-10.2); NEUT % 73.5 % (42.8-82.8); PLATELET COUNT 604 10^3/uL (134-434); RBC 3.84 M/mm3 (3.60-5.2); RDW 13.3 % (11.6-15.6); WHITE BLOOD COUNT 14.9 K/mm3 (4.0-10.0)
[2023-06-12 11:00] LABS: POTASSIUM 5.3 mmol/L (3.5-5.1)
[2023-06-12 11:36] LABS: CALCIUM 9.7 mg/dL (8.5-10.1)
[2023-06-12 11:37] LABS: ALBUMIN 2.1 g/dl (3.4-5.0); BLOOD UREA NITROGEN 25.1 mg/dL (7-18); MAGNESIUM 2.3 mg/dL (1.8-2.4)
[2023-06-12 11:40] LABS: CREATININE 1.2 mg/dL (0.55-1.3); PHOSPHOROUS 5.1 mg/dL (2.5-4.9)
[2023-06-12 11:41] LABS: BILIRUBIN,TOTAL 0.3 mg/dL (0.2-1); TOT PROT 6.8 g/dl (6.4-8.2)
[2023-06-12] MEDS: ATORVASTATIN CA 80 MG TABLET (FP) PO SCH (21:36)
[2023-06-13] MEDS ORDERED: ONDANSETRON 4 MG/2 ML VIAL IVPUSH ONE (00:25)
[2023-06-13] MEDS: PIPERACILLIN/TAZOB 3.375 GM 3.375 GM in DEXTROSE 5%-WATER - 50 ML IVPB SCH ×3 (01:32→17:03)
[2023-06-13] MEDS: INSULIN SLIDING SCALE (NOVOLOG) 1 VIAL SQ SCH ×4 (06:27→21:23)
[2023-06-13] MEDS: ENOXAPARIN NA (PORCINE) 40 MG/0.4 ML DISP.SYRIN SQ SCH (09:48)
[2023-06-13] MEDS: INSULIN (LEVEMIR) 100 UNITS/ML UNITS SQ SCH ×2 (09:49→21:23)
[2023-06-13] MEDS: ASPIRIN COATED 81 MG TABLET.EC PO SCH (09:49)
[2023-06-13] MEDS: CLOPIDOGREL BISULFATE 75 MG TABLET (FP) PO SCH (09:49)
[2023-06-13 10:42] LABS: BASO % 0.4 % (0-2.0); EOS % 1.3 % (0-4.5); HEMOGLOBIN 10.6 GM/dL (10.7-15.3); LYMPH % 28.2 % (8-40); MCH 29.6 pg (25.7-33.7); MEAN CELL VOLUME 89.6 fl (80-96); MEAN PLT VOLUME 8.4 fl (7.5-11.1); MONO % 6.6 % (3.8-10.2); NEUT % 63.5 % (42.8-82.8); PLATELET COUNT 594 10^3/uL (134-434); RBC 3.57 M/mm3 (3.60-5.2); RDW 12.9 % (11.6-15.6)
[2023-06-13 11:37] LABS: POTASSIUM 4.9 mmol/L (3.5-5.1)
[2023-06-13 11:59] LABS: CALCIUM 9.2 mg/dL (8.5-10.1)
[2023-06-13 12:01] LABS: BLOOD UREA NITROGEN 20.2 mg/dL (7-18)
[2023-06-13 12:02] LABS: ALBUMIN 1.9 g/dl (3.4-5.0)
[2023-06-13 12:06] LABS: CREATININE 1.2 mg/dL (0.55-1.3)
[2023-06-13 12:07] LABS: BILIRUBIN,TOTAL 0.2 mg/dL (0.2-1)
[2023-06-13] MEDS ORDERED: MAGNESIUM HYDROX 2400MG/30ML ORAL SUSPENSION 30 ML CUP PO ONE (15:36)
[2023-06-13] MEDS ORDERED: SENNOSIDES 8.8 MG/5 ML SYRUP PO ONE (15:37)
[2023-06-13] MEDS: MULTIVITAMINS (DAILY MVI) TABLET (FP) PO SCH (15:54)
[2023-06-13] MEDS: ASCORBIC ACID 250 MG TABLET (FP) PO SCH (15:54)
[2023-06-13] MEDS ORDERED: PIPERACILLIN/TAZOBACTAM 3.375 GM VIAL IVPB ONE (16:57)
[2023-06-13] MEDS ORDERED: INSULIN (NOVOLOG) ASPART 100 UNITS/ML 10ML VIAL ONE (17:22)
[2023-06-13] MEDS: ATORVASTATIN CA 80 MG TABLET (FP) PO SCH (21:23)
[2023-06-14] MEDS: PIPERACILLIN/TAZOB 3.375 GM 3.375 GM in DEXTROSE 5%-WATER - 50 ML IVPB SCH ×2 (01:16→10:21)
[2023-06-14] MEDS: ACETAMINOPHEN WITH CODEINE 300MG/30MG TABLET PO PRN (04:23)
[2023-06-14] MEDS: INSULIN SLIDING SCALE (NOVOLOG) 1 VIAL SQ SCH ×4 (06:02→21:59)
[2023-06-14] MEDS ORDERED: FLUCONAZOLE 100 MG/NS 50 ML IVPB ONE (08:49)
[2023-06-14 10:17] LABS: BASO % 0.3 % (0-2.0); EOS % 0.8 % (0-4.5); HEMATOCRIT 33.7 % (32.4-45.2); HEMOGLOBIN 11.5 GM/dL (10.7-15.3); LYMPH % 26.9 % (8-40); MCH 29.9 pg (25.7-33.7); MCHC 34.1 g/dl (32.0-36.0); MEAN CELL VOLUME 87.7 fl (80-96); MEAN PLT VOLUME 7.7 fl (7.5-11.1); MONO % 5.7 % (3.8-10.2); NEUT % 66.3 % (42.8-82.8); PLATELET COUNT 632 10^3/uL (134-434); RBC 3.84 M/mm3 (3.60-5.2); RDW 13.2 % (11.6-15.6); WHITE BLOOD COUNT 14.5 K/mm3 (4.0-10.0)
[2023-06-14] MEDS: CLOPIDOGREL BISULFATE 75 MG TABLET (FP) PO SCH (10:20)
[2023-06-14] MEDS: ASCORBIC ACID 250 MG TABLET (FP) PO SCH (10:20)
[2023-06-14] MEDS: MULTIVITAMINS (DAILY MVI) TABLET (FP) PO SCH (10:20)
[2023-06-14] MEDS: ASPIRIN COATED 81 MG TABLET.EC PO SCH (10:20)
[2023-06-14] MEDS ORDERED: FLUCONAZOLE 150 MG TABLET PO ONE (10:30)
[2023-06-14] MEDS: ENOXAPARIN NA (PORCINE) 40 MG/0.4 ML DISP.SYRIN SQ SCH (10:31)
[2023-06-14 10:32] LABS: POTASSIUM 5.4 mmol/L (3.5-5.1)
[2023-06-14 10:35] LABS: CALCIUM 9.4 mg/dL (8.5-10.1)
[2023-06-14 10:36] LABS: BLOOD UREA NITROGEN 19.6 mg/dL (7-18)
[2023-06-14 10:38] LABS: CREATININE 1.2 mg/dL (0.55-1.3)
[2023-06-14 10:40] LABS: BILIRUBIN,TOTAL 0.2 mg/dL (0.2-1)
[2023-06-14 10:41] LABS: TOT PROT 6.5 g/dl (6.4-8.2)
[2023-06-14] MEDS ORDERED: INSULIN (NOVOLOG) ASPART 100 UNITS/ML 10ML VIAL ONE (11:16)
[2023-06-14] MEDS: INSULIN (LEVEMIR) 100 UNITS/ML UNITS SQ SCH ×2 (11:19→21:53)
[2023-06-14 13:40] VITALS: RESP 18
[2023-06-14] MEDS ORDERED: MAGNESIUM HYDROX 2400MG/30ML ORAL SUSPENSION 30 ML CUP PO ONE (15:55)
[2023-06-14] MEDS ORDERED: SENNOSIDES 8.8 MG/5 ML SYRUP PO ONE (15:55)
[2023-06-14] MEDS ORDERED: BISACODYL 5 MG TABLET.DR (FP) PO ONE (15:56)
[2023-06-14] MEDS: CEFTRIAXONE 2 GM in DEXTROSE 5%-WATER 100 ML IVPB SCH (16:01)
[2023-06-14] MEDS ORDERED: BISACODYL 10 MG SUPP.RECT PR ONE ×2 (16:43→19:25)
[2023-06-14] MEDS: ATORVASTATIN CA 80 MG TABLET (FP) PO SCH (21:53)
[2023-06-15] MEDS: INSULIN SLIDING SCALE (NOVOLOG) 1 VIAL SQ SCH ×4 (06:05→21:41)
[2023-06-15] MEDS: CEFTRIAXONE 2 GM in DEXTROSE 5%-WATER 100 ML IVPB SCH (09:58)
[2023-06-15] MEDS: ASCORBIC ACID 250 MG TABLET (FP) PO SCH (09:58)
[2023-06-15] MEDS: ASPIRIN COATED 81 MG TABLET.EC PO SCH (09:58)
[2023-06-15] MEDS: MULTIVITAMINS (DAILY MVI) TABLET (FP) PO SCH (09:58)
[2023-06-15] MEDS: CLOPIDOGREL BISULFATE 75 MG TABLET (FP) PO SCH (09:58)
[2023-06-15] MEDS: ENOXAPARIN NA (PORCINE) 40 MG/0.4 ML DISP.SYRIN SQ SCH (10:00)
[2023-06-15 10:23] LABS: BASO % 0.1 % (0-2.0); EOS % 0.5 % (0-4.5); HEMATOCRIT 33.2 % (32.4-45.2); HEMOGLOBIN 11.4 GM/dL (10.7-15.3); LYMPH % 19.2 % (8-40); MCHC 34.4 g/dl (32.0-36.0); MEAN CELL VOLUME 87.4 fl (80-96); MEAN PLT VOLUME 7.8 fl (7.5-11.1); MONO % 6.4 % (3.8-10.2); NEUT % 73.8 % (42.8-82.8); PLATELET COUNT 622 10^3/uL (134-434); RDW 13.1 % (11.6-15.6); WHITE BLOOD COUNT 18.7 K/mm3 (4.0-10.0)
[2023-06-15 10:35] LABS: POTASSIUM 5.2 mmol/L (3.5-5.1)
[2023-06-15 10:48] LABS: CALCIUM 9.5 mg/dL (8.5-10.1)
[2023-06-15 10:49] LABS: ALBUMIN 2.1 g/dl (3.4-5.0); BLOOD UREA NITROGEN 26.9 mg/dL (7-18); MAGNESIUM 2.9 mg/dL (1.8-2.4)
[2023-06-15 10:51] LABS: CREATININE 1.2 mg/dL (0.55-1.3); PHOSPHOROUS 4.1 mg/dL (2.5-4.9)
[2023-06-15 10:53] LABS: TOT PROT 6.6 g/dl (6.4-8.2)
[2023-06-15 10:54] LABS: BILIRUBIN,TOTAL 0.3 mg/dL (0.2-1)
[2023-06-15] MEDS: INSULIN (LEVEMIR) 100 UNITS/ML UNITS SQ SCH ×2 (11:45→21:41)
[2023-06-15] MEDS: ACETAMINOPHEN WITH CODEINE 300MG/30MG TABLET PO PRN (12:43)
[2023-06-15] MEDS: ATORVASTATIN CA 80 MG TABLET (FP) PO SCH (21:40)
[2023-06-16] MEDS: ACETAMINOPHEN WITH CODEINE 300MG/30MG TABLET PO PRN ×3 (00:59→20:35)
[2023-06-16] MEDS: INSULIN SLIDING SCALE (NOVOLOG) 1 VIAL SQ SCH ×4 (06:58→22:23)
[2023-06-16] MEDS: ASPIRIN COATED 81 MG TABLET.EC PO SCH (09:02)
[2023-06-16] MEDS: ASCORBIC ACID 250 MG TABLET (FP) PO SCH (09:02)
[2023-06-16] MEDS: CEFTRIAXONE 2 GM in DEXTROSE 5%-WATER 100 ML IVPB SCH (09:02)
[2023-06-16] MEDS: LOSARTAN POTASSIUM 50 MG TABLET PO SCH (09:02)
[2023-06-16] MEDS: MULTIVITAMINS (DAILY MVI) TABLET (FP) PO SCH (09:02)
[2023-06-16] MEDS: ENOXAPARIN NA (PORCINE) 40 MG/0.4 ML DISP.SYRIN SQ SCH (09:02)
[2023-06-16] MEDS: INSULIN (LEVEMIR) 100 UNITS/ML UNITS SQ SCH ×2 (09:03→22:21)
[2023-06-16] MEDS: CLOPIDOGREL BISULFATE 75 MG TABLET (FP) PO SCH (09:04)
[2023-06-16 12:52] LABS: BASO % 0.3 % (0-2.0); HEMATOCRIT 34.6 % (32.4-45.2); LYMPH % 25.4 % (8-40); MCH 28.8 pg (25.7-33.7); MEAN PLT VOLUME 8.1 fl (7.5-11.1); MONO % 5.6 % (3.8-10.2); NEUT % 67.7 % (42.8-82.8); PLATELET COUNT 648 10^3/uL (134-434); RBC 3.84 M/mm3 (3.60-5.2); WHITE BLOOD COUNT 15.1 K/mm3 (4.0-10.0)
[2023-06-16 13:11] LABS: CHLORIDE 106 mmol/L (98-107); POTASSIUM 5.1 mmol/L (3.5-5.1); SODIUM 143 mmol/L (136-145)
[2023-06-16 13:14] LABS: ANION GAP 7 MMOL/L (8-16); BLOOD UREA NITROGEN 23.2 mg/dL (7-18); CO2 29 mmol/L (21-32); GLUCOSE,RANDOM 170 mg/dL (74-106); MAGNESIUM 2.5 mg/dL (1.8-2.4)
[2023-06-16 13:17] LABS: BILIRUBIN,TOTAL < 0.1 mg/dL (0.2-1); CREATININE 1.3 mg/dL (0.55-1.3); SGOT/AST 13 U/L (15-37); SGPT/ALT 17 U/L (13-61); TOT PROT 6.4 g/dl (6.4-8.2)
[2023-06-16 13:19] LABS: ALK PHOS 105 U/L (45-117)
[2023-06-16] MEDS ORDERED: INSULIN (NOVOLOG) ASPART 100 UNITS/ML 10ML VIAL ONE (21:58)
[2023-06-16] MEDS: ATORVASTATIN CA 80 MG TABLET (FP) PO SCH (22:22)
[2023-06-17] MEDS: INSULIN SLIDING SCALE (NOVOLOG) 1 VIAL SQ SCH ×4 (06:27→22:22)
[2023-06-17 08:59] LABS: BASO % 0.2 % (0-2.0); HEMATOCRIT 33.7 % (32.4-45.2); HEMOGLOBIN 11.2 GM/dL (10.7-15.3); LYMPH % 22.6 % (8-40); MCH 29.4 pg (25.7-33.7); MCHC 33.4 g/dl (32.0-36.0); MEAN CELL VOLUME 88.1 fl (80-96); MEAN PLT VOLUME 7.8 fl (7.5-11.1); MONO % 5.9 % (3.8-10.2); NEUT % 70.3 % (42.8-82.8); PLATELET COUNT 609 10^3/uL (134-434); RBC 3.82 M/mm3 (3.60-5.2); RDW 13.5 % (11.6-15.6); WHITE BLOOD COUNT 16.6 K/mm3 (4.0-10.0)
[2023-06-17] MEDS: ASCORBIC ACID 250 MG TABLET (FP) PO SCH (09:18)
[2023-06-17] MEDS: ASPIRIN COATED 81 MG TABLET.EC PO SCH (09:18)
[2023-06-17] MEDS: CLOPIDOGREL BISULFATE 75 MG TABLET (FP) PO SCH (09:18)
[2023-06-17] MEDS: MULTIVITAMINS (DAILY MVI) TABLET (FP) PO SCH (09:18)
[2023-06-17] MEDS: INSULIN (LEVEMIR) 100 UNITS/ML UNITS SQ SCH ×2 (09:19→22:20)
[2023-06-17] MEDS: ACETAMINOPHEN WITH CODEINE 300MG/30MG TABLET PO PRN ×2 (09:19→20:15)
[2023-06-17] MEDS: CEFTRIAXONE 2 GM in DEXTROSE 5%-WATER 100 ML IVPB SCH (09:19)
[2023-06-17] MEDS: ENOXAPARIN NA (PORCINE) 40 MG/0.4 ML DISP.SYRIN SQ SCH (09:19)
[2023-06-17] MEDS: LOSARTAN POTASSIUM 50 MG TABLET PO SCH (09:20)
[2023-06-17 09:40] LABS: POTASSIUM 5.3 mmol/L (3.5-5.1)
[2023-06-17 09:47] LABS: ALBUMIN 2.1 g/dl (3.4-5.0); BLOOD UREA NITROGEN 25.4 mg/dL (7-18); CALCIUM 9.2 mg/dL (8.5-10.1)
[2023-06-17 09:51] LABS: CREATININE 1.2 mg/dL (0.55-1.3)
[2023-06-17 09:53] LABS: BILIRUBIN,TOTAL 0.1 mg/dL (0.2-1); TOT PROT 6.5 g/dl (6.4-8.2)
[2023-06-17] MEDS ORDERED: INSULIN (NOVOLOG) ASPART 100 UNITS/ML 10ML VIAL ONE ×2 (17:09→21:44)
[2023-06-17] MEDS ORDERED: hydrALAZINE HCL 10 MG TABLET PO ONE (18:00)
[2023-06-17] MEDS: amLODIPine BESYLATE 5 MG TABLET (FP) PO SCH (18:42)
[2023-06-17] MEDS: ATORVASTATIN CA 80 MG TABLET (FP) PO SCH (22:19)
[2023-06-17] MEDS: hydrALAZINE HCL 10 MG TABLET PO SCH (22:20)
[2023-06-18 05:02] VITALS: BP 136/76; PULSE 73; TEMP 98
[2023-06-18] MEDS: INSULIN SLIDING SCALE (NOVOLOG) 1 VIAL SQ SCH ×3 (06:51→17:35)
[2023-06-18] MEDS: CEFTRIAXONE 2 GM in DEXTROSE 5%-WATER 100 ML IVPB SCH (11:27)
[2023-06-18] MEDS: LOSARTAN POTASSIUM 50 MG TABLET PO SCH (11:28)
[2023-06-18] MEDS: ASPIRIN COATED 81 MG TABLET.EC PO SCH (11:28)
[2023-06-18] MEDS: hydrALAZINE HCL 10 MG TABLET PO SCH (11:28)
[2023-06-18] MEDS: ASCORBIC ACID 250 MG TABLET (FP) PO SCH (11:28)
[2023-06-18] MEDS: amLODIPine BESYLATE 5 MG TABLET (FP) PO SCH (11:29)
[2023-06-18] MEDS: INSULIN (LEVEMIR) 100 UNITS/ML UNITS SQ SCH (11:29)
[2023-06-18] MEDS: ENOXAPARIN NA (PORCINE) 40 MG/0.4 ML DISP.SYRIN SQ SCH (11:29)
[2023-06-18] MEDS: MULTIVITAMINS (DAILY MVI) TABLET (FP) PO SCH (11:29)
[2023-06-18] MEDS: CLOPIDOGREL BISULFATE 75 MG TABLET (FP) PO SCH (11:29)
[2023-06-18] MEDS: ACETAMINOPHEN WITH CODEINE 300MG/30MG TABLET PO PRN (17:34)
== END 2023-06-18 18:57 | disposition home or self-care (01) | DRG 638 ==
LOC: JER 12:49 → JERBED 15:57 → J6S 18:43
PROVIDERS: ADMIT Internal Medicine; ATTEND Internal Medicine
PROC: 02HV33Z Insertion of Infusion Device into Superior Vena Cava, Percutaneous Approach (ICD-10-PCS; principal; 2023-06-15)
PROC: B518YZA Fluoroscopy of Superior Vena Cava using Other Contrast, Guidance (ICD-10-PCS; 2023-06-15)
DX: E11.69 Type 2 diabetes mellitus with other specified complication (principal); E11.52 Type 2 diabetes mellitus with diabetic peripheral angiopathy with gangrene; L02.612 Cutaneous abscess of left foot; L03.116 Cellulitis of left lower limb; M86.9 Osteomyelitis, unspecified; E11.65 Type 2 diabetes mellitus with hyperglycemia; E11.621 Type 2 diabetes mellitus with foot ulcer; B95.4 Other streptococcus as the cause of diseases classified elsewhere; E78.5 Hyperlipidemia, unspecified; I10 Essential (primary) hypertension; L97.529 Non-pressure chronic ulcer of other part of left foot with unspecified severity; I25.10 Atherosclerotic heart disease of native coronary artery without angina pectoris; Z95.5 Presence of coronary angioplasty implant and graft; K59.00 Constipation, unspecified; E11.40 Type 2 diabetes mellitus with diabetic neuropathy, unspecified; D72.829 Elevated white blood cell count, unspecified
CPT/HCPCS: 36415; 36569; 73630-TC-LT; 73700-TC-RT; 73718-TC-LT; 75820-TC-FY; 77001-TC-FY; 80053; 80061; 82962; 83036; 83605; 83735; 84100; 85025; 85651; 86140; 87040; 87070; 87186; 87205; 93005; 93010; 93925-TC; 99285-25; C1751; G0277; G0463-25

== ENCOUNTER 2023-06-28 09:23 | Emergency (ER) | payer OTHER ==
[2023-06-28 09:44] VITALS: BP 145/98; PULSE 95; RESP 18; TEMP 97.9; BMI 25.9
[2023-06-28] MEDS ORDERED: ASPIRIN 81 MG CHEWABLE TABLETS PO ONE (11:33)
[2023-06-28] MEDS ORDERED: ASPIRIN 81 MG CHEWABLE TABLETS ONE (11:37)
[2023-06-28 12:08] LABS: BASO % 0.4 % (0-2.0); EOS % 1.9 % (0-4.5); HEMATOCRIT 35.2 % (32.4-45.2); HEMOGLOBIN 11.2 GM/dL (10.7-15.3); LYMPH % 31.1 % (8-40); MCH 28.4 pg (25.7-33.7); MCHC 31.8 g/dl (32.0-36.0); MEAN CELL VOLUME 89.2 fl (80-96); MEAN PLT VOLUME 8.8 fl (7.5-11.1); MONO % 6.8 % (3.8-10.2); NEUT % 59.8 % (42.8-82.8); PLATELET COUNT 406 10^3/uL (134-434); RBC 3.95 M/mm3 (3.60-5.2); RDW 13.5 % (11.6-15.6); WHITE BLOOD COUNT 11.2 K/mm3 (4.0-10.0)
[2023-06-28 12:34] LABS: POTASSIUM 4.6 mmol/L (3.5-5.1)
[2023-06-28 12:36] LABS: ALBUMIN 2.4 g/dl (3.4-5.0); BLOOD UREA NITROGEN 21.3 mg/dL (7-18); CALCIUM 9.3 mg/dL (8.5-10.1)
[2023-06-28 12:41] LABS: BILIRUBIN,TOTAL 0.2 mg/dL (0.2-1); TOT PROT 6.6 g/dl (6.4-8.2)
[2023-06-28] MEDS ORDERED: SODIUM CHLORIDE 0.9% 500 ML INFUS.BAG IV ONE (13:34)
== END 2023-06-28 17:22 | disposition home or self-care (01) ==
LOC: JER 09:23
DX: R07.2 Precordial pain (principal); E11.9 Type 2 diabetes mellitus without complications; I25.10 Atherosclerotic heart disease of native coronary artery without angina pectoris
CPT/HCPCS: 36415; 71045-TC-FY; 80053; 84484; 85025; 93005; 93010; 99285-25; G0463-25

== ENCOUNTER 2023-07-04 11:34 | Inpatient (IN) | payer OTHER ==
[2023-07-04 14:14] LABS: BASO % 0.3 % (0-2.0); EOS % 2.2 % (0-4.5); HEMATOCRIT 35.8 % (32.4-45.2); HEMOGLOBIN 11.9 GM/dL (10.7-15.3); LYMPH % 34.1 % (8-40); MCH 29.3 pg (25.7-33.7); MCHC 33.4 g/dl (32.0-36.0); MEAN CELL VOLUME 87.8 fl (80-96); MEAN PLT VOLUME 8.6 fl (7.5-11.1); MONO % 9.7 % (3.8-10.2); NEUT % 53.7 % (42.8-82.8); PLATELET COUNT 380 10^3/uL (134-434); RBC 4.07 M/mm3 (3.60-5.2); RDW 14.4 % (11.6-15.6); WHITE BLOOD COUNT 10.4 K/mm3 (4.0-10.0)
[2023-07-04 14:21] LABS: INR 1.03 (0.83-1.09)
[2023-07-04 14:23] LABS: ACTIVATED PTT 35.5 SECONDS (25.2-36.5)
[2023-07-04 14:42] LABS: POTASSIUM 4.2 mmol/L (3.5-5.1)
[2023-07-04 14:43] LABS: CALCIUM 8.9 mg/dL (8.5-10.1)
[2023-07-04 14:45] LABS: ALBUMIN 2.5 g/dl (3.4-5.0); BLOOD UREA NITROGEN 23.2 mg/dL (7-18)
[2023-07-04 14:48] LABS: CREATININE 0.9 mg/dL (0.55-1.3)
[2023-07-04 14:49] LABS: BILIRUBIN,TOTAL 0.2 mg/dL (0.2-1); TOT PROT 6.3 g/dl (6.4-8.2)
[2023-07-04] MEDS ORDERED: PIPERACILLIN/TAZOB 4.5 GM 4.5 GM/100 ML BAG IVPB ONE ×2 (15:06→15:09)
[2023-07-04] MEDS ORDERED: VANCOMYCIN 1,000 MG in DEXTROSE 5%-WATER - 250 ML IVPB ONE (15:06)
[2023-07-04] MEDS ORDERED: ACETAMINOPHEN 1000 MG/100 ML BAG IVPB ONE (15:08)
[2023-07-04] MEDS ORDERED: ACETAMINOPHEN INJECTION 100 ML IVPB ONE (15:10)
[2023-07-04] MEDS ORDERED: VANCOMYCIN 1 GRAM (PRE-DOCKED) 1,000 MG/250 ML BAG IVPB ONE ×2 (15:10→15:22)
[2023-07-04] MEDS ORDERED: hydrALAZINE HCL 10 MG TABLET PO PRN (16:33)
[2023-07-04] MEDS ORDERED: ACETAMINOPHEN 500 MG TABLET (FP) PO PRN (16:38)
[2023-07-04] MEDS: INSULIN SLIDING SCALE (NOVOLOG) 1 VIAL SQ SCH (18:38)
[2023-07-04] MEDS ORDERED: CEFEPIME HCL 2 GM VIAL (RESTRICTED TO ID) IVPB SCH (22:00)
[2023-07-04] MEDS ORDERED: INSULIN (NOVOLOG) ASPART 100 UNITS/ML 10ML VIAL ONE (22:00)
[2023-07-04] MEDS: HEPARIN NA (PORCINE) 5,000 UNITS/ML 1ML VIAL SQ SCH (23:00)
[2023-07-04] MEDS: INSULIN (LEVEMIR) 100 UNITS/ML UNITS SQ SCH (23:02)
[2023-07-04] MEDS: ATORVASTATIN CA 80 MG TABLET (FP) PO SCH (23:04)
[2023-07-04] MEDS: CEFEPIME 2 GM in DEXTROSE 5%-WATER 100 ML IVPB SCH (23:05)
[2023-07-05 04:01] VITALS: BMI 23.5
[2023-07-05] MEDS: INSULIN SLIDING SCALE (NOVOLOG) 1 VIAL SQ SCH ×3 (07:31→16:42)
[2023-07-05] MEDS ORDERED: INSULIN (LEVEMIR) 100 UNITS/ML UNITS SQ ONE (07:40)
[2023-07-05] MEDS ORDERED: VANCOMYCIN/WATER FOR INJ (PEG) 1,000 MG/200 ML BAG IVPB SCH (10:00)
[2023-07-05] MEDS ORDERED: CLOPIDOGREL BISULFATE 75 MG TABLET (FP) PO SCH (10:00)
[2023-07-05] MEDS: ASPIRIN COATED 81 MG TABLET.EC PO SCH (13:28)
[2023-07-05] MEDS: LOSARTAN POTASSIUM 50 MG TABLET PO SCH (13:28)
[2023-07-05] MEDS: HEPARIN NA (PORCINE) 5,000 UNITS/ML 1ML VIAL SQ SCH (13:29)
[2023-07-05] MEDS: COLLAGENASE CLOSTRIDIUM HIST. 30 GRAMS TUBE TP SCH (14:35)
[2023-07-05] MEDS: CLINDAMYCIN 600MG PREMIX IVPB 600 MG/50 ML BAG IVPB SCH ×2 (14:48→17:27)
[2023-07-05] MEDS: CEFEPIME 2 GM in DEXTROSE 5%-WATER 100 ML IVPB SCH (15:52)
[2023-07-05] MEDS: hydrALAZINE HCL 10 MG TABLET PO SCH ×2 (15:56→23:00)
[2023-07-05 16:02] LABS: BASO % 0.4 % (0-2.0); EOS % 2.5 % (0-4.5); HEMATOCRIT 34.8 % (32.4-45.2); HEMOGLOBIN 11.8 GM/dL (10.7-15.3); LYMPH % 38.2 % (8-40); MCH 30.1 pg (25.7-33.7); MCHC 33.9 g/dl (32.0-36.0); MEAN CELL VOLUME 88.9 fl (80-96); MEAN PLT VOLUME 8.8 fl (7.5-11.1); MONO % 8.8 % (3.8-10.2); NEUT % 50.1 % (42.8-82.8); PLATELET COUNT 368 10^3/uL (134-434); RBC 3.91 M/mm3 (3.60-5.2); RDW 14.6 % (11.6-15.6); WHITE BLOOD COUNT 9.2 K/mm3 (4.0-10.0)
[2023-07-05 16:27] LABS: POTASSIUM 4.3 mmol/L (3.5-5.1)
[2023-07-05 16:30] LABS: BLOOD UREA NITROGEN 17.8 mg/dL (7-18); CALCIUM 8.8 mg/dL (8.5-10.1)
[2023-07-05] MEDS: PIPERACILLIN/TAZOB 4.5 GM 4.5 GM in DEXTROSE 5%-WATER 100 ML IVPB SCH (18:03)
[2023-07-05] MEDS: ATORVASTATIN CA 80 MG TABLET (FP) PO SCH (23:00)
[2023-07-05] MEDS: DOCUSATE SODIUM 100 MG CAPSULE (FP) PO SCH (23:00)
[2023-07-05] MEDS: INSULIN (LEVEMIR) 100 UNITS/ML UNITS SQ SCH (23:15)
[2023-07-06] MEDS ORDERED: VANCOMYCIN/WATER FOR INJ (PEG) 1,000 MG/200 ML BAG IVPB SCH (02:00)
[2023-07-06] MEDS: PIPERACILLIN/TAZOB 4.5 GM 4.5 GM in DEXTROSE 5%-WATER 100 ML IVPB SCH ×3 (03:00→17:14)
[2023-07-06] MEDS: CLINDAMYCIN 600MG PREMIX IVPB 600 MG/50 ML BAG IVPB SCH ×2 (03:00→11:08)
[2023-07-06] MEDS: INSULIN SLIDING SCALE (NOVOLOG) 1 VIAL SQ SCH ×3 (05:59→17:34)
[2023-07-06] MEDS: DOCUSATE SODIUM 100 MG CAPSULE (FP) PO SCH ×3 (06:00→22:03)
[2023-07-06] MEDS: LOSARTAN POTASSIUM 50 MG TABLET PO SCH ×2 (09:55→10:12)
[2023-07-06] MEDS: ASPIRIN COATED 81 MG TABLET.EC PO SCH (09:55)
[2023-07-06] MEDS: hydrALAZINE HCL 10 MG TABLET PO SCH ×3 (09:55→22:03)
[2023-07-06] MEDS: COLLAGENASE CLOSTRIDIUM HIST. 30 GRAMS TUBE TP SCH (10:44)
[2023-07-06] MEDS ORDERED: GENTAMICIN SO4 80 MG/2 ML VIAL ONE (10:49)
[2023-07-06] MEDS ORDERED: MIDAZOLAM HCL 2 MG/2 ML SINGLE DOSE VIAL ONE (11:24)
[2023-07-06] MEDS ORDERED: ONDANSETRON 4 MG/2 ML VIAL IVPUSH PRN ×2 (11:46→12:41)
[2023-07-06] MEDS ORDERED: LIDOCAINE HCL 2% (50ML VIAL) INF ONE ×2 (11:56)
[2023-07-06] MEDS ORDERED: BUPIVACAINE HCL/PF 0.5% (5MG/ML) 10 ML VIAL IJ ONE ×2 (11:56)
[2023-07-06] MEDS ORDERED: LACTATED RINGERS SOLUTION 1,000 ML IV SCH (12:00)
[2023-07-06] MEDS ORDERED: GENTAMICIN SO4 80 MG/2 ML VIAL IVPB ONE (12:10)
[2023-07-06] MEDS ORDERED: ACETAMINOPHEN 500 MG TABLET (FP) PO PRN (12:41)
[2023-07-06] MEDS: VANCOMYCIN/WATER FOR INJ (PEG) 1,000 MG/200 ML BAG IVPB SCH (13:52)
[2023-07-06 14:09] LABS: BASO % 0.5 % (0-2.0); EOS % 2.4 % (0-4.5); HEMATOCRIT 35.7 % (32.4-45.2); HEMOGLOBIN 11.9 GM/dL (10.7-15.3); LYMPH % 33.3 % (8-40); MCH 29.9 pg (25.7-33.7); MCHC 33.4 g/dl (32.0-36.0); MEAN CELL VOLUME 89.6 fl (80-96); MEAN PLT VOLUME 8.1 fl (7.5-11.1); NEUT % 55.8 % (42.8-82.8); PLATELET COUNT 380 10^3/uL (134-434); RBC 3.98 M/mm3 (3.60-5.2); RDW 14.3 % (11.6-15.6); WHITE BLOOD COUNT 8.7 K/mm3 (4.0-10.0)
[2023-07-06 14:34] LABS: POTASSIUM 4.2 mmol/L (3.5-5.1)
[2023-07-06 14:37] LABS: ALBUMIN 2.4 g/dl (3.4-5.0); BLOOD UREA NITROGEN 18.9 mg/dL (7-18)
[2023-07-06 14:42] LABS: BILIRUBIN,TOTAL 0.8 mg/dL (0.2-1)
[2023-07-06 14:46] LABS: CALCIUM 8.8 mg/dL (8.5-10.1)
[2023-07-06] MEDS: LACTATED RINGERS SOLUTION 1,000 ML IV SCH (17:15)
[2023-07-06] MEDS ORDERED: INSULIN (NOVOLOG) ASPART 100 UNITS/ML 10ML VIAL ONE (17:22)
[2023-07-06] MEDS ORDERED: CLINDAMYCIN 600MG PREMIX IVPB 600 MG/50 ML BAG IVPB SCH (18:00)
[2023-07-06] MEDS: ATORVASTATIN CA 80 MG TABLET (FP) PO SCH (22:03)
[2023-07-06] MEDS ORDERED: INSULIN (LEVEMIR) 100 UNITS/ML UNITS SQ ONE (23:23)
[2023-07-06] MEDS: INSULIN (LEVEMIR) 100 UNITS/ML UNITS SQ SCH (23:24)
[2023-07-07] MEDS: VANCOMYCIN/WATER FOR INJ (PEG) 1,000 MG/200 ML BAG IVPB SCH ×2 (01:00→15:15)
[2023-07-07] MEDS: PIPERACILLIN/TAZOB 4.5 GM 4.5 GM in DEXTROSE 5%-WATER 100 ML IVPB SCH ×3 (02:43→17:17)
[2023-07-07] MEDS: DOCUSATE SODIUM 100 MG CAPSULE (FP) PO SCH ×3 (05:40→22:07)
[2023-07-07] MEDS: INSULIN SLIDING SCALE (NOVOLOG) 1 VIAL SQ SCH ×3 (06:22→17:17)
[2023-07-07] MEDS ORDERED: INSULIN (NOVOLOG) ASPART 100 UNITS/ML 10ML VIAL ONE ×3 (07:53→17:05)
[2023-07-07] MEDS ORDERED: PIPERACILLIN/TAZOBACTAM 4.5 GM VIAL IVPB ONE (09:34)
[2023-07-07 09:35] LABS: BASO % 0.4 % (0-2.0); EOS % 2.3 % (0-4.5); HEMATOCRIT 32.8 % (32.4-45.2); HEMOGLOBIN 10.9 GM/dL (10.7-15.3); MCH 29.6 pg (25.7-33.7); MCHC 33.2 g/dl (32.0-36.0); MEAN CELL VOLUME 89.4 fl (80-96); MEAN PLT VOLUME 8.6 fl (7.5-11.1); MONO % 7.7 % (3.8-10.2); NEUT % 52.6 % (42.8-82.8); PLATELET COUNT 370 10^3/uL (134-434); RBC 3.67 M/mm3 (3.60-5.2); RDW 14.2 % (11.6-15.6); WHITE BLOOD COUNT 10.1 K/mm3 (4.0-10.0)
[2023-07-07 09:49] LABS: POTASSIUM 4.4 mmol/L (3.5-5.1)
[2023-07-07 09:51] LABS: CALCIUM 8.2 mg/dL (8.5-10.1)
[2023-07-07 09:52] LABS: ALBUMIN 2.2 g/dl (3.4-5.0); BLOOD UREA NITROGEN 21.1 mg/dL (7-18); MAGNESIUM 1.9 mg/dL (1.8-2.4)
[2023-07-07 09:55] LABS: CREATININE 1.1 mg/dL (0.55-1.3)
[2023-07-07 09:56] LABS: TOT PROT 5.3 g/dl (6.4-8.2)
[2023-07-07 09:57] LABS: BILIRUBIN,TOTAL 0.2 mg/dL (0.2-1)
[2023-07-07] MEDS: LOSARTAN POTASSIUM 50 MG TABLET PO SCH (10:02)
[2023-07-07] MEDS: hydrALAZINE HCL 10 MG TABLET PO SCH ×2 (10:02→22:07)
[2023-07-07] MEDS ORDERED: FLUCONAZOLE 150 MG TABLET PO ONE (10:15)
[2023-07-07] MEDS ORDERED: hydrALAZINE HCL 10 MG TABLET PO ONE (17:04)
[2023-07-07] MEDS: ATORVASTATIN CA 80 MG TABLET (FP) PO SCH (22:07)
[2023-07-07] MEDS: INSULIN (LEVEMIR) 100 UNITS/ML UNITS SQ SCH (22:15)
[2023-07-08] MEDS: PIPERACILLIN/TAZOB 4.5 GM 4.5 GM in DEXTROSE 5%-WATER 100 ML IVPB SCH ×3 (02:06→19:57)
[2023-07-08] MEDS: VANCOMYCIN/WATER FOR INJ (PEG) 1,000 MG/200 ML BAG IVPB SCH ×2 (02:55→16:35)
[2023-07-08] MEDS: hydrALAZINE HCL 10 MG TABLET PO SCH ×3 (05:39→21:32)
[2023-07-08] MEDS: DOCUSATE SODIUM 100 MG CAPSULE (FP) PO SCH ×3 (05:40→21:32)
[2023-07-08] MEDS: LACTATED RINGERS SOLUTION 1,000 ML IV SCH (05:49)
[2023-07-08] MEDS: INSULIN SLIDING SCALE (NOVOLOG) 1 VIAL SQ SCH ×3 (06:40→16:51)
[2023-07-08 08:29] LABS: BASO % 0.3 % (0-2.0); EOS % 2.8 % (0-4.5); HEMATOCRIT 32.6 % (32.4-45.2); HEMOGLOBIN 11.1 GM/dL (10.7-15.3); LYMPH % 29.6 % (8-40); MCHC 34.1 g/dl (32.0-36.0); MEAN PLT VOLUME 8.4 fl (7.5-11.1); MONO % 6.5 % (3.8-10.2); NEUT % 60.8 % (42.8-82.8); PLATELET COUNT 369 10^3/uL (134-434); RDW 14.6 % (11.6-15.6); WHITE BLOOD COUNT 11.7 K/mm3 (4.0-10.0)
[2023-07-08 08:47] LABS: POTASSIUM 4.2 mmol/L (3.5-5.1)
[2023-07-08 08:50] LABS: ALBUMIN 2.2 g/dl (3.4-5.0); CALCIUM 8.7 mg/dL (8.5-10.1)
[2023-07-08 08:51] LABS: BLOOD UREA NITROGEN 17.4 mg/dL (7-18); MAGNESIUM 1.8 mg/dL (1.8-2.4)
[2023-07-08 08:54] LABS: CREATININE 0.9 mg/dL (0.55-1.3)
[2023-07-08 08:55] LABS: BILIRUBIN,TOTAL 0.4 mg/dL (0.2-1); TOT PROT 5.6 g/dl (6.4-8.2)
[2023-07-08] MEDS: ENOXAPARIN NA (PORCINE) 40 MG/0.4 ML DISP.SYRIN SQ SCH (10:17)
[2023-07-08] MEDS: LOSARTAN POTASSIUM 50 MG TABLET PO SCH (10:17)
[2023-07-08] MEDS ORDERED: INSULIN (NOVOLOG) ASPART 100 UNITS/ML 10ML VIAL ONE ×2 (11:02→16:40)
[2023-07-08] MEDS: CLOPIDOGREL BISULFATE 75 MG TABLET (FP) PO SCH (14:46)
[2023-07-08] MEDS: DOXYCYCLINE HYCLATE 100 MG CAPSULE PO SCH ×2 (14:46→18:09)
[2023-07-08] MEDS: ASPIRIN COATED 81 MG TABLET.EC PO SCH (14:46)
[2023-07-08] MEDS ORDERED: ERTAPENEM SODIUM 1 GM in SODIUM CHLORIDE 50 ML IVPB SCH (18:00)
[2023-07-08] MEDS ORDERED: PIPERACILLIN/TAZOBACTAM 4.5 GM VIAL IVPB ONE (19:50)
[2023-07-08] MEDS: ATORVASTATIN CA 80 MG TABLET (FP) PO SCH (21:32)
[2023-07-08] MEDS: INSULIN (LEVEMIR) 100 UNITS/ML UNITS SQ SCH (21:41)
[2023-07-08 23:53] VITALS: RESP 18
[2023-07-09] MEDS: PIPERACILLIN/TAZOB 4.5 GM 4.5 GM in DEXTROSE 5%-WATER 100 ML IVPB SCH ×3 (02:02→17:39)
[2023-07-09] MEDS: INSULIN SLIDING SCALE (NOVOLOG) 1 VIAL SQ SCH ×3 (06:07→17:13)
[2023-07-09] MEDS: hydrALAZINE HCL 10 MG TABLET PO SCH ×2 (06:09→15:34)
[2023-07-09] MEDS: DOCUSATE SODIUM 100 MG CAPSULE (FP) PO SCH ×2 (06:09→15:04)
[2023-07-09 08:08] LABS: BASO % 0.5 % (0-2.0); EOS % 1.9 % (0-4.5); HEMATOCRIT 33.3 % (32.4-45.2); HEMOGLOBIN 11.1 GM/dL (10.7-15.3); LYMPH % 40.6 % (8-40); MCH 29.3 pg (25.7-33.7); MCHC 33.2 g/dl (32.0-36.0); MEAN CELL VOLUME 88.1 fl (80-96); MEAN PLT VOLUME 8.6 fl (7.5-11.1); PLATELET COUNT 398 10^3/uL (134-434); RBC 3.78 M/mm3 (3.60-5.2); RDW 14.8 % (11.6-15.6)
[2023-07-09 08:27] LABS: POTASSIUM 4.1 mmol/L (3.5-5.1)
[2023-07-09 08:29] LABS: ALBUMIN 2.3 g/dl (3.4-5.0); BLOOD UREA NITROGEN 18.4 mg/dL (7-18); CALCIUM 8.6 mg/dL (8.5-10.1); MAGNESIUM 1.9 mg/dL (1.8-2.4)
[2023-07-09 08:34] LABS: BILIRUBIN,TOTAL 0.2 mg/dL (0.2-1); TOT PROT 5.8 g/dl (6.4-8.2)
[2023-07-09] MEDS: DOXYCYCLINE HYCLATE 100 MG CAPSULE PO SCH ×2 (10:37→17:39)
[2023-07-09] MEDS: ASPIRIN COATED 81 MG TABLET.EC PO SCH (10:37)
[2023-07-09] MEDS: CLOPIDOGREL BISULFATE 75 MG TABLET (FP) PO SCH (10:37)
[2023-07-09] MEDS: LOSARTAN POTASSIUM 50 MG TABLET PO SCH (10:37)
[2023-07-09] MEDS: ENOXAPARIN NA (PORCINE) 40 MG/0.4 ML DISP.SYRIN SQ SCH (10:38)
[2023-07-09 16:07] VITALS: BP 147/92; PULSE 85; TEMP 98
== END 2023-07-09 18:57 | disposition home or self-care (01) | DRG 863 ==
LOC: JER 11:34 → JERBED 15:43 → J8W 19:24
PROVIDERS: ADMIT Internal Medicine; ATTEND Nurse Practitioner Family
PROC: 0Y9N0ZZ Drainage of Left Foot, Open Approach (ICD-10-PCS; principal; 2023-07-06 11:00)
DX: T81.49XA Infection following a procedure, other surgical site, initial encounter (principal); L03.116 Cellulitis of left lower limb; L02.612 Cutaneous abscess of left foot; Y83.8 Other surgical procedures as the cause of abnormal reaction of the patient, or of later complication, without mention of misadventure at the time of the procedure; E11.51 Type 2 diabetes mellitus with diabetic peripheral angiopathy without gangrene; I25.10 Atherosclerotic heart disease of native coronary artery without angina pectoris; I25.2 Old myocardial infarction; I10 Essential (primary) hypertension; Z79.4 Long term (current) use of insulin
CPT/HCPCS: 36415; 73630-TC-LT; 73718-TC-LT; 80048; 80053; 82962; 83036; 83735; 84703; 85025; 85610; 85651; 85730; 86140; 86850; 86900; 86901; 87040; 87070; 87186; 87205; 94010; 94760; 97116-GP; 97161-GP; 99285-25; G0277; G0463-25; G0480; J1644

== ENCOUNTER 2023-11-11 12:51 | Inpatient (IN) | payer OTHER ==
[2023-11-11 14:32] LABS: BASO % 0.8 % (0-2.0); HEMATOCRIT 42.8 % (32.4-45.2); HEMOGLOBIN 14.1 GM/dL (10.7-15.3); LYMPH % 31.3 % (8-40); MCH 30.1 pg (25.7-33.7); MCHC 32.9 g/dl (32.0-36.0); MEAN CELL VOLUME 91.4 fl (80-96); MEAN PLT VOLUME 8.8 fl (7.5-11.1); MONO % 8.1 % (3.8-10.2); NEUT % 58.8 % (42.8-82.8); PLATELET COUNT 421 10^3/uL (134-434); RBC 4.69 M/mm3 (3.60-5.2); RDW 13.2 % (11.6-15.6); WHITE BLOOD COUNT 14.6 K/mm3 (4.0-10.0)
[2023-11-11 14:39] LABS: INR 0.97 (0.83-1.09); PROTHROMBIN TIME (PATIENT) 11.3 SEC (9.7-13.0)
[2023-11-11 14:42] LABS: ACTIVATED PTT 36.5 SECONDS (25.2-36.5)
[2023-11-11 14:59] LABS: POTASSIUM 5.5 mmol/L (3.5-5.1)
[2023-11-11 15:01] LABS: CALCIUM 9.1 mg/dL (8.5-10.1)
[2023-11-11 15:02] LABS: ALBUMIN 2.4 g/dl (3.4-5.0); BLOOD UREA NITROGEN 37.7 mg/dL (7-18)
[2023-11-11 15:05] LABS: CREATININE 1.1 mg/dL (0.55-1.3)
[2023-11-11 15:07] LABS: BILIRUBIN,TOTAL 0.4 mg/dL (0.2-1)
[2023-11-11 15:09] LABS: ERYTHROCYTE SEDIMENTATION RATE 79 mm/hr (0-20)
[2023-11-11] MEDS ORDERED: VANCOMYCIN/WATER 1250 MG 1,250 MG/250 ML BAG IVPB ONE (16:03)
[2023-11-11] MEDS ORDERED: CEFTRIAXONE 1,000 MG in DEXTROSE 5%-WATER - 50 ML IVPB ONE (16:03)
[2023-11-11 16:22] LABS: POTASSIUM 4.1 mmol/L (3.5-5.1)
[2023-11-11 16:24] LABS: BLOOD UREA NITROGEN 37.4 mg/dL (7-18); CALCIUM 8.8 mg/dL (8.5-10.1)
[2023-11-11 16:28] LABS: CREATININE 1.1 mg/dL (0.55-1.3)
[2023-11-11] MEDS: INSULIN ASPART SLIDING SCALE (NOVOLOG) 1 VIAL SQ SCH (16:46)
[2023-11-11] MEDS ORDERED: INSULIN (LEVEMIR) 100 UNITS/ML UNITS SQ SCH (22:00)
[2023-11-11] MEDS ORDERED: ATORVASTATIN CA 80 MG TABLET (FP) PO SCH (22:00)
[2023-11-11] MEDS ORDERED: hydrALAZINE HCL 10 MG TABLET ONE (22:02)
[2023-11-11] MEDS ORDERED: ATORVASTATIN CA 80 MG TABLET (FP) ONE (22:02)
[2023-11-11] MEDS: hydrALAZINE HCL 10 MG TABLET PO SCH (22:07)
[2023-11-12 04:04] VITALS: BMI 26.4
[2023-11-12] MEDS: INSULIN ASPART SLIDING SCALE (NOVOLOG) 1 VIAL SQ SCH ×3 (06:50→17:31)
[2023-11-12 08:55] LABS: BASO % 0.7 % (0-2.0); EOS % 1.2 % (0-4.5); HEMATOCRIT 36.4 % (32.4-45.2); HEMOGLOBIN 12.1 GM/dL (10.7-15.3); LYMPH % 35.1 % (8-40); MCH 30.4 pg (25.7-33.7); MCHC 33.2 g/dl (32.0-36.0); MEAN CELL VOLUME 91.5 fl (80-96); MEAN PLT VOLUME 8.5 fl (7.5-11.1); MONO % 8.8 % (3.8-10.2); NEUT % 54.2 % (42.8-82.8); PLATELET COUNT 359 10^3/uL (134-434); RBC 3.98 M/mm3 (3.60-5.2); WHITE BLOOD COUNT 11.6 K/mm3 (4.0-10.0)
[2023-11-12 09:27] LABS: POTASSIUM 4.2 mmol/L (3.5-5.1)
[2023-11-12 09:32] LABS: CALCIUM 8.9 mg/dL (8.5-10.1)
[2023-11-12 09:33] LABS: BLOOD UREA NITROGEN 30.7 mg/dL (7-18)
[2023-11-12 09:37] LABS: CREATININE 0.9 mg/dL (0.55-1.3)
[2023-11-12] MEDS ORDERED: KERENDIA 10 MG PO SCH (10:00)
[2023-11-12] MEDS ORDERED: LOSARTAN POTASSIUM 50 MG TABLET PO SCH (10:00)
[2023-11-12] MEDS ORDERED: ASPIRIN COATED 81 MG TABLET.EC PO SCH (10:00)
[2023-11-12] MEDS ORDERED: CLOPIDOGREL BISULFATE 75 MG TABLET (FP) PO SCH (10:00)
[2023-11-12] MEDS: hydrALAZINE HCL 10 MG TABLET PO SCH ×2 (10:10→21:54)
[2023-11-12] MEDS ORDERED: PROPOFOL 20 ML ONE (12:38)
[2023-11-12] MEDS ORDERED: MIDAZOLAM HCL 2 MG/2 ML SINGLE DOSE VIAL ONE (12:38)
[2023-11-12] MEDS ORDERED: ceFAZolin SODIUM 1 GM VIAL IVPB ONE (13:02)
[2023-11-12] MEDS ORDERED: ceFAZolin SODIUM 1 GM VIAL ONE (13:12)
[2023-11-12] MEDS ORDERED: BUPIVACAINE HCL/PF 0.5% (5 MG/ML) 30 ML VIAL IJ ONE (13:15)
[2023-11-12] MEDS ORDERED: LIDOCAINE HCL 1%, 10 MG/ML (50 mL VIAL) NR ONE (13:15)
[2023-11-12] MEDS ORDERED: DEXAMETHASONE SOD PHOSPHATE 4 MG/1 ML VIAL ONE (13:17)
[2023-11-12] MEDS ORDERED: ONDANSETRON 4 MG/2 ML VIAL ONE (13:17)
[2023-11-12] MEDS ORDERED: INSULIN (NOVOLOG) ASPART 100 UNITS/ML 10ML VIAL ONE (17:27)
[2023-11-12] MEDS ORDERED: LACTATED RINGERS SOLUTION 1,000 ML IV SCH (21:45)
[2023-11-12] MEDS: ATORVASTATIN CA 80 MG TABLET (FP) PO SCH (21:54)
[2023-11-12] MEDS: HEPARIN NA (PORCINE) 5,000 UNITS/ML 1ML VIAL SQ SCH (21:59)
[2023-11-12] MEDS: INSULIN (LEVEMIR) 100 UNITS/ML UNITS SQ SCH (22:01)
[2023-11-13] MEDS: HEPARIN NA (PORCINE) 5,000 UNITS/ML 1ML VIAL SQ SCH ×3 (06:51→22:02)
[2023-11-13] MEDS: INSULIN ASPART SLIDING SCALE (NOVOLOG) 1 VIAL SQ SCH ×3 (06:53→17:57)
[2023-11-13] MEDS ORDERED: INSULIN (NOVOLOG) ASPART 100 UNITS/ML 10ML VIAL ONE (07:46)
[2023-11-13 10:06] LABS: BASO % 0.2 % (0-2.0); EOS % 0.5 % (0-4.5); HEMATOCRIT 38.1 % (32.4-45.2); HEMOGLOBIN 12.3 GM/dL (10.7-15.3); LYMPH % 27.8 % (8-40); MCH 29.7 pg (25.7-33.7); MCHC 32.2 g/dl (32.0-36.0); MEAN PLT VOLUME 9.1 fl (7.5-11.1); MONO % 8.5 % (3.8-10.2); PLATELET COUNT 376 10^3/uL (134-434); RBC 4.14 M/mm3 (3.60-5.2); RDW 12.9 % (11.6-15.6)
[2023-11-13 10:25] LABS: CHLORIDE 108 mmol/L (98-107); POTASSIUM 4.1 mmol/L (3.5-5.1); SODIUM 142 mmol/L (136-145)
[2023-11-13] MEDS: CLOPIDOGREL BISULFATE 75 MG TABLET (FP) PO SCH (10:25)
[2023-11-13] MEDS: LOSARTAN POTASSIUM 50 MG TABLET PO SCH (10:25)
[2023-11-13] MEDS: hydrALAZINE HCL 10 MG TABLET PO SCH ×2 (10:27→22:02)
[2023-11-13] MEDS: ASPIRIN COATED 81 MG TABLET.EC PO SCH (10:27)
[2023-11-13 10:38] LABS: ANION GAP 8 mmol/L (4-13); BLOOD UREA NITROGEN 35.5 mg/dL (7-18); CALCIUM 9.1 mg/dL (8.5-10.1); CO2 25 mmol/L (21-32); GLUCOSE,RANDOM 157 mg/dL (74-106)
[2023-11-13 10:41] LABS: CREATININE 1.2 mg/dL (0.55-1.3); SGOT/AST 9 U/L (15-37); SGPT/ALT 10 U/L (13-61)
[2023-11-13 10:43] LABS: BILIRUBIN,TOTAL < 0.1 mg/dL (0.2-1); TOT PROT 5.3 g/dl (6.4-8.2)
[2023-11-13 10:48] LABS: ALK PHOS 98 U/L (45-117)
[2023-11-13 10:52] LABS: ALBUMIN 1.8 g/dl (3.4-5.0)
[2023-11-13] MEDS ORDERED: SODIUM CHLORIDE 1,000 ML IV SCH (11:15)
[2023-11-13] MEDS: KERENDIA 10 MG PO SCH (11:33)
[2023-11-13] MEDS: CEFTRIAXONE 2 GM in DEXTROSE 5%-WATER 100 ML IVPB SCH (11:33)
[2023-11-13] MEDS: INSULIN (LEVEMIR) 100 UNITS/ML UNITS SQ SCH (22:02)
[2023-11-13] MEDS: ATORVASTATIN CA 80 MG TABLET (FP) PO SCH (22:02)
[2023-11-14] MEDS: INSULIN ASPART SLIDING SCALE (NOVOLOG) 1 VIAL SQ SCH ×3 (06:20→16:33)
[2023-11-14] MEDS: HEPARIN NA (PORCINE) 5,000 UNITS/ML 1ML VIAL SQ SCH ×3 (06:20→21:27)
[2023-11-14 09:28] LABS: BASO % 0.2 % (0-2.0); EOS % 1.8 % (0-4.5); HEMATOCRIT 37.4 % (32.4-45.2); HEMOGLOBIN 12.6 GM/dL (10.7-15.3); LYMPH % 35.2 % (8-40); MCH 30.7 pg (25.7-33.7); MCHC 33.7 g/dl (32.0-36.0); MEAN CELL VOLUME 91.1 fl (80-96); MEAN PLT VOLUME 9.2 fl (7.5-11.1); MONO % 6.4 % (3.8-10.2); NEUT % 56.4 % (42.8-82.8); PLATELET COUNT 378 10^3/uL (134-434); RBC 4.11 M/mm3 (3.60-5.2); WHITE BLOOD COUNT 11.5 K/mm3 (4.0-10.0)
[2023-11-14 09:43] LABS: POTASSIUM 4.5 mmol/L (3.5-5.1)
[2023-11-14 09:50] LABS: ALBUMIN 1.9 g/dl (3.4-5.0); BLOOD UREA NITROGEN 29.6 mg/dL (7-18); MAGNESIUM 1.9 mg/dL (1.8-2.4)
[2023-11-14 09:53] LABS: CREATININE 0.9 mg/dL (0.55-1.3)
[2023-11-14] MEDS: ASPIRIN COATED 81 MG TABLET.EC PO SCH (09:53)
[2023-11-14] MEDS: LOSARTAN POTASSIUM 50 MG TABLET PO SCH (09:53)
[2023-11-14] MEDS: KERENDIA 10 MG PO SCH (09:53)
[2023-11-14] MEDS: CLOPIDOGREL BISULFATE 75 MG TABLET (FP) PO SCH (09:53)
[2023-11-14] MEDS: CEFTRIAXONE 2 GM in DEXTROSE 5%-WATER 100 ML IVPB SCH (09:53)
[2023-11-14 09:54] LABS: BILIRUBIN,TOTAL 0.1 mg/dL (0.2-1); TOT PROT 5.4 g/dl (6.4-8.2)
[2023-11-14] MEDS ORDERED: hydrALAZINE HCL 25 MG TABLET (FP) PO ONE (11:07)
[2023-11-14] MEDS ORDERED: INSULIN (NOVOLOG) ASPART 100 UNITS/ML 10ML VIAL ONE ×2 (12:14→16:29)
[2023-11-14] MEDS ORDERED: hydrALAZINE HCL 10 MG TABLET PO SCH (14:00)
[2023-11-14] MEDS: hydrALAZINE HCL 25 MG TABLET (FP) PO SCH ×2 (14:43→21:27)
[2023-11-14] MEDS: INSULIN (LEVEMIR) 100 UNITS/ML UNITS SQ SCH (21:27)
[2023-11-14] MEDS: ATORVASTATIN CA 80 MG TABLET (FP) PO SCH (21:27)
[2023-11-15] MEDS ORDERED: INSULIN (NOVOLOG) ASPART 100 UNITS/ML 10ML VIAL ONE ×2 (06:14→12:12)
[2023-11-15] MEDS: INSULIN ASPART SLIDING SCALE (NOVOLOG) 1 VIAL SQ SCH ×2 (06:22→12:17)
[2023-11-15] MEDS: HEPARIN NA (PORCINE) 5,000 UNITS/ML 1ML VIAL SQ SCH (06:23)
[2023-11-15] MEDS: hydrALAZINE HCL 25 MG TABLET (FP) PO SCH (06:23)
[2023-11-15] MEDS ORDERED: DALBAVANCIN HCL 1,500 MG in DEXTROSE 5%-WATER - 500 ML IVPB ONE ×2 (09:41→09:48)
[2023-11-15 09:59] LABS: POTASSIUM 3.9 mmol/L (3.5-5.1)
[2023-11-15 10:01] LABS: CALCIUM 8.5 mg/dL (8.5-10.1)
[2023-11-15 10:02] LABS: ALBUMIN 1.8 g/dl (3.4-5.0); BLOOD UREA NITROGEN 27.5 mg/dL (7-18); MAGNESIUM 2.1 mg/dL (1.8-2.4)
[2023-11-15 10:05] LABS: CREATININE 0.9 mg/dL (0.55-1.3)
[2023-11-15 10:06] LABS: TOT PROT 5.5 g/dl (6.4-8.2)
[2023-11-15 10:07] LABS: BILIRUBIN,TOTAL 0.2 mg/dL (0.2-1)
[2023-11-15 10:11] LABS: BASO % 0.3 % (0-2.0); EOS % 1.3 % (0-4.5); HEMATOCRIT 39.2 % (32.4-45.2); HEMOGLOBIN 12.9 GM/dL (10.7-15.3); LYMPH % 31.6 % (8-40); MCHC 32.8 g/dl (32.0-36.0); MEAN CELL VOLUME 91.4 fl (80-96); NEUT % 60.8 % (42.8-82.8); PLATELET COUNT 391 10^3/uL (134-434); RBC 4.29 M/mm3 (3.60-5.2); RDW 12.8 % (11.6-15.6); WHITE BLOOD COUNT 11.3 K/mm3 (4.0-10.0)
[2023-11-15] MEDS: LOSARTAN POTASSIUM 50 MG TABLET PO SCH (11:13)
[2023-11-15] MEDS: CEFTRIAXONE 2 GM in DEXTROSE 5%-WATER 100 ML IVPB SCH (11:13)
[2023-11-15] MEDS: ASPIRIN COATED 81 MG TABLET.EC PO SCH (11:13)
[2023-11-15] MEDS: CLOPIDOGREL BISULFATE 75 MG TABLET (FP) PO SCH (11:13)
[2023-11-15] MEDS: KERENDIA 10 MG PO SCH (11:14)
[2023-11-15 14:38] VITALS: BP 152/91; PULSE 92; RESP 18; TEMP 98.1
== END 2023-11-15 13:39 | disposition home or self-care (01) | DRG 344 ==
LOC: JER 12:51 → JERBED 16:01 → J8W 11-12 02:40
PROVIDERS: ADMIT Internal Medicine; ATTEND Nurse Practitioner Acute Care
PROC: 0QB93ZX Excision of Left Femoral Shaft, Percutaneous Approach, Diagnostic (ICD-10-PCS; principal; 2023-11-12 12:00)
PROC: 05HY33Z Insertion of Infusion Device into Upper Vein, Percutaneous Approach (ICD-10-PCS; 2023-11-15)
DX: E11.69 Type 2 diabetes mellitus with other specified complication (principal); M86.9 Osteomyelitis, unspecified; E11.51 Type 2 diabetes mellitus with diabetic peripheral angiopathy without gangrene; E78.5 Hyperlipidemia, unspecified; I10 Essential (primary) hypertension; I73.9 Peripheral vascular disease, unspecified; I25.10 Atherosclerotic heart disease of native coronary artery without angina pectoris; Z95.5 Presence of coronary angioplasty implant and graft
CPT/HCPCS: 0241U-QW; 36415; 36569; 73630-TC-LT; 77001-TC-FY; 80048; 80053; 82962; 83735; 84703; 85025; 85610; 85651; 85730; 86140; 86850; 86900; 86901; 87040; 87070; 87075; 93005; 93010; 94760; 97597; 99285-25; C1751; G0277; J1644

== ENCOUNTER 2023-11-16 12:45 | Day surgery (SDC) | payer OTHER ==
[2023-11-16] MEDS ORDERED: DALBAVANCIN HCL 1,500 MG in DEXTROSE 5%-WATER - 500 ML IVPB ONE (15:30)
[2023-11-16 15:34] VITALS: BP 142/90; PULSE 89; RESP 18; TEMP 98.6
== END 2023-11-16 17:00 | disposition home or self-care (01) ==
LOC: FINFUSION 12:45 → FM/S 12:45 → FINFUSION 17:00
PROVIDERS: ATTEND Internal Medicine Infectious Disease
DX: M86.8X7 Other osteomyelitis, ankle and foot (principal)
CPT/HCPCS: 96365; J0875

== ENCOUNTER 2023-11-24 12:57 | Day surgery (SDC) | payer OTHER ==
[2023-11-24] MEDS ORDERED: DALBAVANCIN HCL 1,500 MG in DEXTROSE 5%-WATER - 500 ML IVPB ONE (13:15)
[2023-11-24 14:53] VITALS: BP 170/93; PULSE 93; RESP 14; TEMP 98
== END 2023-11-24 14:54 | disposition home or self-care (01) ==
LOC: FINFUSION 12:57 → FM/S 12:59 → FINFUSION 14:54
PROVIDERS: ATTEND Internal Medicine Infectious Disease
DX: M86.8X7 Other osteomyelitis, ankle and foot (principal)
CPT/HCPCS: 96365; J0875